=== PATIENT | male | born 1960 | race Asian ===

== ENCOUNTER 2016-11-17 17:27 | Inpatient (IN) | payer OTHER ==
--- NOTE | 2016-11-17 17:56 | ED Physician Documentation ---
History of Present Illness - Stated complaint Stated Complaint: LOWER BACK PX - Chief complaint Chief Complaint: General - History obtained from History obtained from: Patient - History of Present Illness Timing: Other (6 days ago developed R sided back pain with bloating and constipation. Small BM a few days ago after milk of magnesia. Saw clinic today and noted ARF (baseline creatinine is about 1.8-2). No assoc urinary complaints or decrease or dyspnea. He has a H/O NIDDM, PCKD, renal colic.) - Additonal information Additional information: Urologist is Dr Luke ho and Nephro is Dr Hoover Review of Systems Ten Systems: 10 systems reviewed and negative Constitutional: denies: Fever, Chills, Myalgias Cardiac: denies: Chest pain / pressure, Palpitations Respiratory: denies: Dyspnea, Cough GI: denies: Nausea, Vomiting, Diarrhea PD PAST MEDICAL HISTORY - Past Medical History Past Medical History: Yes Cardiovascular: Hypertension Endocrine/Autoimmune: Type 2 diabetes : Renal insuffiency (stage 3, baseline cr 2), Other - Allergies Allergies/Adverse Reactions: Allergies Allergy/AdvReac Type Severity Reaction Status Date / Time No Known Drug Allergies Allergy Verified 11/17/16 17:33 - Social History Does the pt smoke?: No Smoking Status: Never smoker - Immunizations Immunizations are current?: Yes PD ED PE NORMAL - Vitals Vital signs reviewed: Yes - General General: Alert and oriented X 3, No acute distress, Well developed/nourished - HEENT HEENT: PERRL, EOMI - Neck Neck: Supple, no meningeal sign, No bony TTP - Cardiac Cardiac: RRR, No murmur - Respiratory Respiratory: No respiratory distress, Clear bilaterally - Abdomen Abdomen: Soft, Non tender - Back Back: No CVA TTP, No spinal TTP - Extremities Extremities: No edema, No calf tenderness / cord - Neuro Neuro: Alert and oriented X 3, Normal speech - Psych Psych: Normal mood, Normal affect Results - Vitals Vitals: Vital Signs - 24 hr 11/17/16 11/17/16 11/17/16 17:30 20:00 22:58 Temperature 36.2 C L Heart Rate 86 78 81 Respiratory 14 18 18 Rate Blood Pressure 156/83 H 145/82 H 165/81 H O2 Saturation 100 98 97 Oxygen O2 Source Room air - Labs Labs: Laboratory Tests 11/17/16 11/17/16 11/17/16 18:05 18:05 18:49 WBC 11.1 H RBC 3.59 L Hgb 10.9 L Hct 33.2 L MCV 92.3 MCH 30.2 MCHC 32.7 RDW 13.5 Plt Count 129 L MPV 9.4 Neut # 8.9 H Lymph # 1.1 L [place] # 0.9 Eos # 0.1 Baso # 0.1 Absolute Nucleated RBC 0.00 Nucleated RBCs 0.0 Sodium 136 Potassium 5.6 H Chloride 105 Carbon Dioxide 21 Anion Gap 10.0 BUN 86 H* Creatinine 6.7 H Estimated GFR (MDRD) 9 L Glucose 141 H Calcium 8.7 Magnesium 2.8 Total Bilirubin 0.5 AST 27 ALT 45 Alkaline Phosphatase 89 Total Protein 7.9 Albumin 3.6 Globulin 4.3 H Albumin/Globulin Ratio 0.8 L Lipase 138 H Urine Color YELLOW Urine Clarity CLEAR Urine pH 6.0 Ur Specific [place] 1.015 Urine Protein 100 H Urine Glucose (UA) NEGATIVE Urine Ketones NEGATIVE Urine Occult Blood SMALL H Urine Nitrite NEGATIVE Urine Bilirubin NEGATIVE Urine Urobilinogen 0.2 (NORMAL) Ur Leukocyte Esterase NEGATIVE Urine RBC 0-5 Urine WBC 0-3 Ur Squamous Epith Cells RARE Squamous Urine Bacteria Rare Ur Microscopic Review INDICATED Urine Culture Comments NOT INDICATED 11/17/16 21:41 WBC RBC Hgb Hct MCV MCH MCHC RDW Plt Count MPV Neut # Lymph # [place] # Eos # Baso # Absolute Nucleated RBC Nucleated RBCs Sodium 138 Potassium 5.3 H Chloride 108 Carbon Dioxide 20 L Anion Gap 10.0 BUN 89 H* Creatinine 6.4 H Estimated GFR (MDRD) 9 L Glucose 92 Calcium 8.4 L Magnesium Total Bilirubin AST ALT Alkaline Phosphatase Total Protein Albumin Globulin Albumin/Globulin Ratio Lipase Urine Color Urine Clarity Urine pH Ur Specific [place] Urine Protein Urine Glucose (UA) Urine Ketones Urine Occult Blood Urine Nitrite Urine Bilirubin Urine Urobilinogen Ur Leukocyte Esterase Urine RBC Urine WBC Ur Squamous Epith Cells Urine Bacteria Ur Microscopic Review Urine Culture Comments - Rads (name of study) CT KUB Radiology: EMP read contemporaneously (Nephrolithiasis with mild right hydronephrosis and right UPJ stone measuring 7 x 5 x 4 mm. Also renal cyst with a concerning cyst the left, that is being worked up by his urologist.) PD MEDICAL DECISION MAKING - ED course ED course: 55-year-old gentleman with chronic renal insufficiency presents with acute renal failure likely do to a combination of nonobstructing right nephrolithiasis and dehydration. He was administered IV fluids here. I spoke with Dr. Mackenzie, internal combustion engineer for his urologist who felt that he did not need urgent intervention on the stone- but Dr. Ho can be consulted tomorrow.. Call to the hospitalist at [facility] for transfer given that he may need specialty input including but not limited to urology and nephrology at [address] [facility] did not have a bed, they relayed this to us at about 915 p.m. I discussed the case with Dr. Franco here he said that we could repeat a BMP and if his renal function is improving after the fluids that he has already gotten here she would be willing to admit, otherwise would need to transfer. He is 100% service-connected[facility] Departure - Departure Disposition: 66 [facility] DC/Xfer Clinical Impression: Renal colic on right side, Acute on chronic renal failure Condition: Stable
[2016-11-17 18:13] LABS: BASOPHILS # (AUTO) 0.1 10^3/uL (0.0-0.1); BASOPHILS % (AUTO) 0.5 %; EOSINOPHILS # (AUTO) 0.1 10^3/uL (0.0-0.7); EOSINOPHILS % (AUTO) 1.2 %; HCT - HEMATOCRIT 33.2 % (42.0-52.0); HGB - HEMOGLOBIN 10.9 g/dL (14.0-18.0); LYMPHOCYTES # (AUTO) 1.1 10^3/uL (1.5-3.5); LYMPHOCYTES % (AUTO) 10.3 %; MEAN CORPUSCULAR HEMOGLOBIN 30.2 pg (27.0-31.0); MEAN CORPUSCULAR HGB CONC 32.7 g/dL (32.0-36.0); MEAN CORPUSCULAR VOLUME 92.3 fL (80.0-94.0); MEAN PLATELET VOLUME 9.4 fL (7.4-11.4); MONOCYTES # (AUTO) 0.9 10^3/uL (0.0-1.0); NEUTROPHILS # (AUTO) 8.9 10^3/uL (1.5-6.6); RED BLOOD COUNT 3.59 10^6/uL (4.70-6.10); RED CELL DISTRIBUTION WIDTH 13.5 % (12.0-15.0); UNCORRECTED WHITE BLOOD COUNT 11.1 x10^3/uL; WHITE BLOOD COUNT 11.1 x10^3/uL (4.8-10.8)
[2016-11-17 18:44] LABS: ALBUMIN/GLOBULIN RATIO 0.8 (1.0-2.2); BILIRUBIN,TOTAL 0.5 mg/dL (0.2-1.0); CALCIUM 8.7 mg/dL (8.5-10.3); CREATININE 6.7 mg/dL (0.6-1.2); MAGNESIUM 2.8 mg/dL (1.7-2.8); POTASSIUM 5.6 mmol/L (3.5-5.0); TOTAL PROTEIN 7.9 g/dL (6.7-8.2)
[2016-11-17] MEDS ORDERED: SODIUM CHLORIDE 0.9% 1,000 ML IV ONE ×2 (18:59→21:03)
[2016-11-17 19:06] LABS: BILIRUBIN,URINE NEGATIVE (NEGATIVE)
[2016-11-17 19:09] LABS: UA w/ MICROSCOPIC CHARGE YES
[2016-11-17 19:17] LABS: UR CULTURE IF IND NOT INDICATED; WBC,URINE 0-3 /HPF (0-3)
--- NOTE | 2016-11-17 19:39 | CT Preliminary Report ---
Exam: CT Abdomen/Pelvis W/O IMPRESSION: 1. Nephrolithiasis with mild right hydronephrosis and a right ureteropelvic junction stone measuring 7 x 4 x 5 mm. 2. Multiple renal cysts with a more complex hyperdense lesion at the lower pole of the left kidney me asuring 19 mm. Differential diagnosis includes a hyperdense/proteinaceous cyst versus a solid lesion. Follow-up outpatient renal ultrasound suggested for further characterization. [facility] SITE ID: [id number]
--- NOTE | 2016-11-17 19:42 | CT Report ---
EXAM: CT ABDOMEN AND PELVIS EXAM DATE: 11/17/2016 06:43 PM. CLINICAL HISTORY: Right abdominal and flank pain. Acute renal failure. COMPARISONS: Abdomen and pelvis CT 02/09/2006. TECHNIQUE: Routine helical CT imaging was performed through the abdomen and pelvis. IV contrast: None . Enteric contrast: No. Reconstructions: Coronal and sagittal. In accordance with CT protocol optimization, one or more of the following dose reduction techniques w ere utilized for this exam: automated exposure control, adjustment of mA and/or KV based on patient s ize, or use of iterative reconstructive technique. FINDINGS: Lung Bases: Trace linear atelectasis left lower lobe. Liver: Normal. No masses. Gallbladder/Bile Ducts: Contracted gallbladder without adjacent inflammation. Spleen: Normal. Pancreas: Normal. Adrenal Glands: Normal. Kidneys: Left kidney has multiple cysts, largest is an exophytic cyst at the lower pole measuring 8.2 cm. Additionally there is a high-density lesion at the lower pole measuring 19 mm which is indetermi frederic (3, 68). There are multiple cysts within the right kidney as well although with a 3 mm nonobstructing stone an d mild right hydronephrosis. At the level of the ureteropelvic junction there is a 7 x 4 x 5 mm obstr ucting stone. Ureter is decompressed distal to this. Peritoneal Cavity/Bowel: The stomach is unremarkable. There are no dilated loops of large or small in testine. There is mild underlying colonic diverticulosis without focal inflammation. Pelvic Organs: Bladder is unremarkable. Vasculature: Atherosclerosis without abdominal aortic aneurysm. Bones: Minimal degenerative disk disease lumbar spine. Other: None. IMPRESSION: 1. Nephrolithiasis with mild right hydronephrosis and a right ureteropelvic junction stone measuring 7 x 4 x 5 mm. 2. Multiple renal cysts with a more complex hyperdense lesion at the lower pole of the left kidney me asuring 19 mm. Differential diagnosis includes a hyperdense/proteinaceous cyst versus a solid lesion. Follow-up outpatient renal ultrasound suggested for further characterization. [facility] Referring Provider Line: [phone] SITE ID: [id number]
[2016-11-17 21:59] LABS: CALCIUM 8.4 mg/dL (8.5-10.3); CREATININE 6.4 mg/dL (0.6-1.2); POTASSIUM 5.3 mmol/L (3.5-5.0)
[2016-11-17] MEDS ORDERED: ONDANSETRON ODT 4 MG TABLET TL PRN (23:24)
[2016-11-17] MEDS ORDERED: SODIUM CHLORIDE FLUSH 0.9% 10 ML SYRINGE IVP PRN (23:24)
[2016-11-17] MEDS ORDERED: HYDROcod/ACETAM 5/325 MG TABLET PO PRN (23:24)
[2016-11-17] MEDS ORDERED: ACETAMINOPHEN 325 MG TABLET PO PRN (23:24)
[2016-11-17] MEDS ORDERED: PROCHLORPERAZINE 10 MG/2 ML VIAL IVP PRN (23:24)
[2016-11-18] MEDS: SODIUM CHLORIDE 0.9% 1,000 ML IV SCH ×3 (00:01→14:43)
[2016-11-18] MEDS ORDERED: SODIUM CHLORIDE FLUSH 0.9% 10 ML SYRINGE IVP SCH (06:00)
[2016-11-18 06:24] LABS: CREATININE 6.1 mg/dL (0.6-1.2); POTASSIUM 5.8 mmol/L (3.5-5.0)
[2016-11-18] MEDS ORDERED: DEXTROSE 10% IV ONE (07:00)
[2016-11-18] MEDS ORDERED: INSULIN REGULAR HUMAN IV ONE (07:00)
[2016-11-18 07:13] LABS: HEMOGLOBIN A1C 0.35 g/dL
--- NOTE | 2016-11-18 07:49 | HISTORY & PHYSICAL EXAMINATION ---
DATE OF ADMISSION: 11/17/2016 PRIMARY CARE PROVIDER: Dee Feliz MD, [facility]. NEPHROLOGY: [facility]. ADMITTING PROVIDER: Jeannette Franco MD CHIEF COMPLAINT: Back pain with abdominal bloating. HISTORY OF PRESENT ILLNESS: Patient is a 55-year-old [place] male who has cystic kidney disease. It is unclear if it is true polycystic kidney disease, but he has cystic kidney disease and severe nephr olithiasis, which is combined to give him chronic kidney disease. He states that his usual creatinine is between 1.9 and 2.1. He is followed by Family Practice at [facility], who has refe rred him to [facility] in [place]. He has also sought a second opinion with the [facility], and has also been seen by Nephrology and Urology at the [facility] in [place]. When he was last seen in July, his labs were "stable" by both groups of doctors. Between then and now, he states he has been compliant with his medications, and he has had no episodes of renal colic. A week ago he developed increasing right flank and low back pain. He says he has chronic right flank pain, and it has been so for years. It happens maybe once a week, lasts all night long, and when he takes his Salonpas or Tylenol, it is gone by the next morning. This time his pain was associated with mild lower back pain and increasing abdominal bloating and dis tention. He did not have a bowel movement on , Wednesday, or Wednesday, so he took milk of magnes ia. He was not eating very much, and in retrospect realized he probably also was not drinking very mu ch on top of it. He was afraid to eat or drink because he felt that if he had constipation, he would develop nausea and vomiting, if he had constipation and ate too much. He had no abdominal pain, fever , chills. No urgency, frequency, dysuria. He did not have any of the pain he usually associates with renal colic. He saw his clinic doctor today, and it was noted that his "lab values were abnormal," an d he was sent to the emergency room. He says he does not know what the numbers were, and he does not know what exactly was abnormal. He was seen in the emergency room by Dr. Toro. He is a pleasant, short-statured [place] male who i s mildly hypertensive, afebrile, oxygenating well on room air. In no acute distress. However, his pot assium is 5.6, BUN is 86, creatinine 6.7. Dr. Toro contacted Urology, and Dr. Mackenzie was on-call. His usual urologist is Dr. Valderrama. Dr. Mackenzie did not feel that the patient needed any urgent intervention, but felt that the patient should be see n tomorrow. The [facility] was called for attempt to transfer, but there were no beds. I was con tacted to see if we could accept the patient on our service. He had already received a liter of jimena l saline and was on maintenance 150 mL/hour of normal saline. I [facility] Dr[facility], and his BUN went from 86 to 89. Creatinine went from 6.7 to 6.4. Potassium went down to 5.3. As such right now, as a temporary measure, I do feel the patient can be admitted to our service in [facility] of lack of Urology and Nephrology here. The patient is amenable to be admitted here. PAST MEDICAL HISTORY 1. Cystic kidney disease diagnosed around 1991. At that time he was at [facility], and he was racheal d by his [place] doctor that his "creatinine was creeping up." Nothing was done about that until 1996, w hen he was hospitalized for his first kidney stone. Between then and now, he has been diagnosed as begum ving a large kidney, says that they are watching to make sure it is not a tumor. He has had CTs and M RIs, and he is being followed on a yearly basis. Usually creatinine is 1.9 to 2.1. 2. Nephrolithiasis. Uric acid stones. First severe episode was in 1996. Between 1996 and 2005, he had several episodes a month. He regarded them as "mild." In 2005, he had a severe episode with both kidneys being obstructed, and he ended up with sepsis. In addition to the flank pain, he had severe nausea and vomiting and was admitted to the [facility] in [place]. From there he was transferred to the hospital in [place]. In [place], he had both kidneys stented, and eventually both stones passed without lithotripsy. In 2007, he was in [facility] in [place] and hospitalized there. At that time he was not having pain, b ut his creatinine was severely elevated, so a CT was done and showed multiple, multiple stones. This time he had surgery through his "back." Since that time, he has been on potassium citrate and allopurinol. At this time, he sees Dr. Valderrama for Urology and Dr. Hoover for Nephrology at [facility]. 3. Type 2 diabetes mellitus since 2010. No macular degeneration, no neuropathy. 4. Hypertension. 5. Hyperlipidemia. 6. Obstructive sleep apnea. ALLERGIES: NO KNOWN DRUG ALLERGIES. MEDICATIONS List is unknown. So far, nursing has not put that into the computer. The patient says that he takes: 1. Januvia. 2. Glipizide. 3. Three hypertensive medications. 4. Allopurinol. 5. Aspirin. 6. K Citrate. 7. Lipitor. I will verify the names and drug doses in the morning when the pharmacy is open. SOCIAL HISTORY: He never smoked, never drank. He was born and raised in the [facility]. Joined [employer] at the age of 21, was there for 30 years and retired at age 51. 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 His back hurt so much, he ended up quitting. He is 100 % service connected because of disability from back pain. He lives in his own home in [place] with his . She is his first . FAMILY HISTORY: Dad at age 83 of cirrhosis but also suffered from chronic kidney disease and was on dialysis. Mom at age 81 of [place] 30 days-40 days after her . He has 3 sisters who have hypertension. Three children, one of whom has hypertension. There is a possibility o f prostatitis in his son. REVIEW OF SYSTEMS GENERAL: On general questioning, he regards himself as a healthy mayte, other than he knows he should d iet and lose weight. He fishes, mows the lawn, stays active. HEENT: He denies glaucoma, cataracts, macular degeneration. He denies problems with his teeth. No fac ial dysesthesia. No problems with swallowing. PULMONARY: He denies coughing, wheezing, chest congestion. CARDIAC: He denies valvular heart disease, history of heart attacks. No orthopnea, no edema. GENITOURINARY: Positive as above. JOINTS: He aches the older he has gotten. Being a cook in the [employer] for that many years has resulted i n significant foot pain and knee pain when he stands for too long; but more than anything, his low ba ck hurts on a regular basis. Again, he has right flank pain about once a week. All of this is unchang ed for several years now. SKIN: No new lesions. No rashes. No new moles. PSYCHIATRIC: He denies anxiety, depression, suicide, hallucinations. CENTRAL NERVOUS SYSTEM: He denies memory loss, syncope, or seizures. No history of focal dysesthesias . He denies neuropathy. LABORATORIES CHEMISTRY: Sodium is 136, potassium 5.6, carbon dioxide 21, BUN 86, creatinine 6.7, glucose 141, lipa se 138. Repeat after hydration: Sodium is 138, potassium 5.3, carbon dioxide 20, BUN 89, creatinine 6.4. HEMATOLOGY: White cell count is 11.1, hemoglobin 10.9, hematocrit 33.2, platelets 129. URINALYSIS: Proteinuria and occult blood. No red cells or white cells that are in large amounts. Rare bacteria. Culture is not going to be done. ASSESSMENT/PLAN 1. Acute kidney insufficiency superimposed on chronic kidney disease. Fairly severe abrupt rise in cr eatinine according to his history and his recollection of his numbers. Mechanism of injury, I think, is just simple dehydration. We will do a noncontrast CT in the morning. He does recall having a sever e rising creatinine in the past with almost no pain and found to have multiple obstructing stones. As I was getting ready to order the CT, I noted that Dr. Toro had already done that, and he has multi ple cysts in the left kidney, the largest is an exophytic cyst. A high-density lesion in the lower po le. Multiple cysts within the right kidney. Nephrolithiasis with mild right hydronephrosis and right ureteropelvic stone measuring 7 x 4 x 5 mm. As such, I will not order the CT. We will continue hydrat ing overnight. See what his creatinine does tomorrow morning. Options at that point are to transfer h im to [facility] if he has not had significant improvement. Recall them for a bed. If he has had signific ant improvement, he can stay here until his creatinine is baseline, and then he can be discharged. 2. Hypertension. Mildly uncontrolled. We will find out what his medications are tomorrow morning. 3. Abnormal kidney CT. The patient already is being followed for possible neoplasm. He will continue to be followed by both clinics. 4. Type 2 diabetes mellitus, controlled by history. No complications. Not on long-term insulin. Check glucose and give sliding scale insulin as indicated. 5. FULL CODE STATUS. 6. Deep venous thrombosis prophylaxis with CELESTE alexander. ADDENDUM The patient's daughter came in and was able to bring us a dictated and typed up medication list from the [facility]. He is on: 1. Lipitor 20 mg p.o. at bedtime. 2. Aspirin 81 mg p.o. daily. 3. Adalat 30 mg p.o. daily. 4. Cozaar 100 mg p.o. daily. 5. Metoprolol 50 mg daily. 6. Allopurinol 100 mg p.o. daily. 7. Potassium citrate 1080 mg once a day. 8. Glipizide XL 5 mg daily. 9. Januvia 25 mg daily. JOB #: [id number] EXT JOB #:[id number]
[2016-11-18] MEDS: INSULIN ASPART 300 UNIT/3 ML PEN SUBQ SCH ×2 (08:39→11:34)
[2016-11-18] MEDS ORDERED: METOPROLOL SUCCINATE 50 MG TABLET PO SCH (09:00)
[2016-11-18] MEDS ORDERED: POLYETHYLENE GLYCOL 3350 17 GM PACKET PO SCH (09:00)
[2016-11-18] MEDS ORDERED: NIFEdipine ER 30 MG TABLET PO SCH (09:00)
[2016-11-18 09:13] LABS: BASOPHILS % (AUTO) 0.4 %; EOSINOPHILS # (AUTO) 0.1 10^3/uL (0.0-0.7); EOSINOPHILS % (AUTO) 2.3 %; HCT - HEMATOCRIT 30.1 % (42.0-52.0); HGB - HEMOGLOBIN 10.3 g/dL (14.0-18.0); LYMPHOCYTES # (AUTO) 1.1 10^3/uL (1.5-3.5); LYMPHOCYTES % (AUTO) 17.3 %; MEAN CORPUSCULAR HEMOGLOBIN 31.5 pg (27.0-31.0); MEAN CORPUSCULAR HGB CONC 34.2 g/dL (32.0-36.0); MEAN CORPUSCULAR VOLUME 92.2 fL (80.0-94.0); MEAN PLATELET VOLUME 8.6 fL (7.4-11.4); MONOCYTES # (AUTO) 0.6 10^3/uL (0.0-1.0); MONOCYTES % (AUTO) 9.3 %; NEUTROPHILS # (AUTO) 4.7 10^3/uL (1.5-6.6); NEUTROPHILS % (AUTO) 70.7 %; RED BLOOD COUNT 3.27 10^6/uL (4.70-6.10); RED CELL DISTRIBUTION WIDTH 13.5 % (12.0-15.0); UNCORRECTED WHITE BLOOD COUNT 6.6 x10^3/uL; WHITE BLOOD COUNT 6.6 x10^3/uL (4.8-10.8)
[2016-11-18 09:50] LABS: ALBUMIN/GLOBULIN RATIO 0.9 (1.0-2.2); BILIRUBIN,TOTAL 0.5 mg/dL (0.2-1.0); CALCIUM 8.1 mg/dL (8.5-10.3); CREATININE 6.1 mg/dL (0.6-1.2); POTASSIUM 5.3 mmol/L (3.5-5.0); TOTAL PROTEIN 7.1 g/dL (6.7-8.2)
[2016-11-18] MEDS ORDERED: SODIUM POLYSTYRENE SULFONATE 15 GM/60 ML BOTTLE PO ONE (10:45)
[2016-11-18 12:16] VITALS: BP 134/83
--- NOTE | 2016-11-18 13:15 | Discharge Plan ---
Discharge Plan Disposition: 02 Transfer Acute Care Hosp Condition: Serious Diet: Diabetic Activity Restrictions: No Restrictions Shower Restrictions: No Driving Restrictions: No Weight Bearing: Full Weight Instruction Topics: Simple Renal Cysts Additional Instructions or Follow Up instructions: patient to be transferred to [facility] for urology and nephrology consult. services not available at this hospital NPO till seen by Attending. ACLS transfer IVF to continue enroute at 150ml/hr NS Telemetry monitoring No Smoking: If you smoke, Please STOP! Call for help.
--- NOTE | 2016-11-18 15:29 | Ultrasound Report ---
RENAL ULTRASOUND: 11/18/2016 CLINICAL INDICATION: Hydronephrosis, possible solid mass on CT. COMPARISON: CT of 11/17/2016. TECHNIQUE: Real-time sonographic vascular imaging was performed by the director of neurology through the kidney s utilizing both color-flow and Doppler spectral analysis. Multiple artists' booking representative static images wer e saved for review. FINDINGS: The right kidney measures 16.6 x 7.6 x 6.6 cm. Moderate hydronephrosis is present. Multipl e cysts are present. There is a solid appearing nodule measuring 1.2 x 1.0 x 0.7 cm arising from the lateral cortex of the right kidney. The left kidney measures 11.2 x 5.8 x 6.7 cm. No hydronephrosis is present. Multiple cysts are presen t. Additionally, there is a 3.6 x 2.1 x 2.0 cm solid appearing lesion arising from the lateral cortex of the left kidney, with vascular flow identified. Prevoid, the bladder measures 5.4 x 4.1 x 3.2 cm, yielding a prevoid volume of 37 mL. The left ureter al jet was visualized. The right ureteral jet is not seen. IMPRESSION: HYPERDENSE LESION ARISING FROM THE LOWER POLE OF THE LEFT KIDNEY APPEARS TO CORRELATE WI TH A SOLID LESION MEASURING 3.6 X 2.1 X 2.0 CM, WITH VASCULAR FLOW IDENTIFIED. POSSIBLE SECOND SMALLE R SOLID NODULE ARISING FROM THE LATERAL CORTEX OF THE RIGHT KIDNEY, MEASURING 1.2 X 1.0 X 0.7 CM. RIG HT HYDRONEPHROSIS AND NONVISUALIZATION OF THE RIGHT URETERAL JET. JOB #: [id number] EXT JOB #:[id number]
--- NOTE | 2016-11-18 17:31 | DISCHARGE SUMMARY ---
DATE OF ADMISSION: 11/17/2016 DATE OF DISCHARGE: 11/18/2016 DISCHARGING PHYSICIAN: YVES Emerson. PRIMARY CARE PROVIDER: GLORIA and Dr. Feliz. ADMITTING DIAGNOSES: Acute kidney insufficiency superimposed on chronic kidney disease stage III. DISCHARGE DIAGNOSES: 1. Acute kidney injury with chronic kidney disease stage III with UPJ obstruction. 2. Acute kidney failure secondary to nephrolithiasis with mild right hydronephrosis and right UPJ obstruction with stone. 3. 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 4. Noninsulin dependent diabetes mellitus with chronic kidney disease stage III and peripheral neuropathy. 5. Hypertensive heart disease with diastolic congestive heart failure. 6. Mixed hyperlipidemia. 7. Severe obstructive sleep apnea without use of CPAP and noncompliance. 8. Obesity with body mass index greater than 35, with extra caloric intake. PROCEDURES: 1. Renal ultrasound pending. 2. Abdomen and pelvis CT noncontrast, impression shows nephrolithiasis with mild right hydronephrosis and UPJ obstruction and large renal cyst, right kidney of 19 mm. CONSULTATIONS: 1. Urology, Dr. Valderrama; Recommendation to have the patient transferred to have care for Urology and Nephrology. HOSPITAL COURSE: The patient is a 55-year-old [place] gentleman who has a longstanding history of polycystic kidney disease and history of severe nephrolithiasis. He has history of chronic kidney disease stage III. The patient has had a followup by Nephrology and Urology in the past for these chronic conditions. The patient did present to the ER with severe lower back pain and increasing abdominal bloating and discomfort. The patient states that he had been constipated, had not had a bowel movement in several days. He states he had not been eating much and was not drinking much fluid on top of that. He was afraid to eat or drink because he felt that he would start having nausea, vomiting. He has had similar symptoms in the past. He did have pain that was similar to his renal colic, felt he should come into the ER for evaluation. He had originally gone to the clinic which then told him to be reevaluated at the ER because his lab values had come back abnormal. After presentation to the ER, he was found to have a creatinine 6.7 and a potassium of 5.8. The patient was started on IV fluids and Urology and Nephrology were consulted by Dr. Toro in the ER. The patient was admitted, placed on maintenance IV fluids, normal saline at 150 mL an hour. Labs were repeated to see if there is any improvement in his kidney function. His kidney function did decrease with a BUN that went down to 86 from 89 and potassium went down to 5.3 from 5.8, creatinine decreased from 6.7 to 6.4. At that time, decision was made to contact [facility], since the patient's neurologist and field crew chief both practice there. It was found that [facility] did not have any beds, subsequently the patient was admitted for further evaluation and with pending transfer to [facility] once a bed was available. On the day of pending discharge [facility] was contacted again and again had no beds. Decision was made at that time to contact Dr. Valderrama, who is the patient's urologist. Dr. Valderrama recommended transfer to another facility. At that time, [facility] was called and Dr. Armstrong agreed to take the patient with Urology and nephrology on consult. Prior to being transferred the patient did undergo an ultrasound of the kidneys which is pending at this time. At the time of discharge, the patient was stable with vital signs within normal limits. Blood pressure 134/83, pulse 74, respirations 18, and pulse oximetry 97% . He remained afebrile. The patient stated he had no pain at the time of evaluation for transfer. MEDICATIONS AT TIME OF TRANSFER: 1. Allopurinol. 2. Aspirin. 3. Atorvastatin. 4. Glipizide. 5. Losartan. 6. Metoprolol. 7. Nifedipine. 8. Potassium citrate. 9. Januvia. PHYSICAL EXAMINATION: CONSTITUTIONAL: The patient is alert, in no acute distress. EYES: Pupils equal, round and react to light and accommodation. Conjunctivae and sclerae was nonicteric, not injected. ENT: Nares are patent. No nasal discharge. Oropharynx: No masses, exudates or lesions. Mucous membranes are moist. NECK: Supple. No thyromegaly. CARDIOVASCULAR: S1, S2 noted. No gallops, murmurs or rubs. RESPIRATORY: Breath sounds are clear and equal bilaterally to auscultation and percussion, no retractions or nasal flaring. GASTROINTESTINAL: Abdomen was distended, soft, nontender. Bowel sounds hypoactive. GENITOURINARY: Mild CVA tenderness to upper right and left quadrant. No masses palpated. No bladder distention. PSYCHIATRIC: Behavior is appropriate. Normal affect, pleasant mood. SKIN: Warm, dry, intact. Normal turgor. No evidence of rash, lesions, or cellulitis. HEMATOLOGIC: No active bleeding. The patient is hemodynamically stable. LYMPHATICS: No cervical, axillary, supraclavicular lymphadenopathy is noted. NEUROLOGIC: The patient was alert, GCS 15. Cranial nerves 2 through 7 grossly intact. Sensory is intact. MUSCULOSKELETAL/EXTREMITIES: No cyanosis. Pulses are palpable bilaterally to upper and lower extremities. The patient is able to move upper and lower extremities without difficulty. INSTRUCTIONS FOR DISCHARGE AND FOLLOWUP: The patient was to be transferred to [facility] for further evaluation by Dr. Armstrong, internal medicine, and with Urology. The patient verbally understood and agreed to transfer. The patient understood that we had neither of these services at [facility] and this was the main reason for being transferred. The patient also understood that he was to followup with his primary care provider after discharge from hospital. The patient was to be transferred by ACLS on telemetry monitoring and IV fluids, normal saline at 150 mL an hour. The patient's urologist, Dr. Valderrama, was consulted and notified of the patient's transfer. At time of transfer, the patient's vital signs were within normal limits. He was exhibiting no symptoms or signs of pain and he was safely transfer/discharged out of the hospital via ACLS. Instructions were given to the patient for further followup and lifestyle changes related to polycystic kidney disease. Time spent on education, planning and assessment was 50 minutes. CODE STATUS: THE PATIENT REMAINED FULL CODE STATUS. JOB #: [id number] EXT JOB #:[id number] [facility]ITALP[facility]
== END 2016-11-18 15:08 | disposition short-term general hospital (02) | DRG 683 ==
LOC: ED 17:27 → MS 23:24
PROVIDERS: ADMIT Specialist; ATTEND Nurse Practitioner
DX: N17.9 Acute kidney failure, unspecified (principal); Q61.3 Polycystic kidney, unspecified; I50.30 Unspecified diastolic (congestive) heart failure; N13.2 Hydronephrosis with renal and ureteral calculous obstruction; N28.89 Other specified disorders of kidney and ureter; E11.22 Type 2 diabetes mellitus with diabetic chronic kidney disease; N18.3 Chronic kidney disease, stage 3 (moderate); E11.42 Type 2 diabetes mellitus with diabetic polyneuropathy; I11.0 Hypertensive heart disease with heart failure; E78.2 Mixed hyperlipidemia; G47.33 Obstructive sleep apnea (adult) (pediatric); Z91.19 Patient's noncompliance with other medical treatment and regimen; E66.9 Obesity, unspecified; Z68.35 Body mass index [BMI] 35.0-35.9, adult; E86.0 Dehydration; Z79.84 Long term (current) use of oral hypoglycemic drugs; Z79.82 Long term (current) use of aspirin
CPT/HCPCS: 36415; 74176; 76770; 80048; 80053; 81001; 81003; 83036; 83690; 83735; 84550; 85025; 87086; 96360; 96361; 99284; 99285

== ENCOUNTER 2017-12-09 21:58 | Outpatient (CLI) | payer OTHER ==
--- NOTE | 2017-12-09 23:49 | Ultrasound Preliminary Report ---
Exam: US RETROPERITONEAL Impression: 1. Hyperechoic kidneys consistent with medical renal disease. 2. No hydronephrosis. 3. Numerous bilateral renal cysts. [facility] The call report notification system was initiated by Dr. Imtiaz Staples at 23:40 hrs on 12/09/17. The above findings were discussed with Dr CLARK Hoover, by Dr. Imtiaz Staples at 23: 47 hrs on 12/09/17. SITE ID: [id number]
--- NOTE | 2017-12-10 00:13 | Ultrasound Report ---
EXAM: RENAL ULTRASOUND EXAM DATE: 12/09/2017 11:16 PM. CLINICAL HISTORY: Acute renal failure, concern for obstruction. COMPARISON: 11/17/2016 CT, 11/18/2016 ultrasound. TECHNIQUE: Real-time scanning was performed with static images obtained. FINDINGS: The right kidney measures 18.2 x 8.5 x 11.8 cm and demonstrates a hyperechoic parenchymal echotexture . Numerous cysts seen scattered throughout the kidney measuring up to 5.5 cm in diameter. No solid ma ss, stone or hydronephrosis. The left kidney measures 19.1 x 8.5 x 10.3 cm and contains numerous cysts, largest measuring 8.2 cm i n diameter. No obvious stone, contour deforming mass or hydronephrosis. Diffusely hyperechoic parench ymal echotexture. Prevoid bladder volume 375 cc, postvoid 10.1 cc. Bilateral ureteral jets seen. IMPRESSION: 1. Hyperechoic kidneys consistent with medical renal disease. 2. No hydronephrosis. 3. Numerous bilateral renal cysts. [facility] The call report notification system was initiated by Dr. Imtiaz Staples at 23:40 hrs on 12/09/17. The above findings were discussed with Dr CLARK Hoover Dr by Dr. Imtiaz Staples at 23: 47 hrs on 12/09/17. Referring Provider Line: [phone] SITE ID: [id number]
== END 2017-12-09 21:59 | disposition home or self-care (01) ==
LOC: DI 21:58
PROVIDERS: ATTEND Student in an Organized Health Care Education/Training Program
DX: N28.1 Cyst of kidney, acquired (principal)
CPT/HCPCS: 76770

== ENCOUNTER 2018-03-21 15:05 | Outpatient (CLI) | payer OTHER | END 2018-03-21 15:06 | disposition home or self-care (01) | LOC: LAB 15:05 | PROVIDERS: ATTEND Internal Medicine | DX: E87.5 Hyperkalemia (principal) | CPT/HCPCS: 36415; 84132 ==

== ENCOUNTER 2018-06-15 08:55 | Outpatient (CLI) | payer OTHER ==
--- NOTE | 2018-06-15 16:43 | MRI Report ---
Reason: PAIN IN RIGHT KNEE Procedure Date: 06/15/2018 Accession Number: [id number] / [id number] Procedure: MRI - Knee RT W/O CPT Code: FULL RESULT: EXAM: RIGHT KNEE MRI WITHOUT CONTRAST EXAM DATE: 06/15/2018 10:09 AM. CLINICAL HISTORY: Pain in right knee. Swelling, tenderness. COMPARISON: None. TECHNIQUE: Multiplanar, multisequence T1-weighted and fluid-sensitive sequences of the knee without contrast. Other: None. FINDINGS: Bones: No fractures or subluxations. No marrow edema. No bone lesions. Articular Cartilage: Unremarkable. Medial Meniscus: There is a partial thickness tear posterior horn medial meniscus adjacent to and possibly involving the posterior meniscal root. No full-thickness tear is seen however. Series 501 images 8 and 9. Lateral Meniscus: The lateral meniscus is intact. Cruciate Ligaments: Some increased T2 signal seen in the ACL. PCL is unremarkable. ACL is intact. Collateral Ligaments: Medial collateral ligament shows some medial bowing secondary to partial subluxation of the medial meniscus out of the joint. LCL is unremarkable. Tendons: The quadriceps, patellar, semimembranosus, and popliteus tendons are unremarkable. Musculature: No edema or fatty atrophy. Other: Trace joint effusion. No popliteal cyst. No loose bodies. The medial and lateral retinacula are intact. Some subcutaneous edema and swelling is seen in the anterior knee as well as in Hoffa's fat pad. IMPRESSION: 1. Partial thickness tear posterior horn medial meniscus which may involve a portion of the posterior horn meniscal root. No evidence for full-thickness tear, however. Medial meniscus is partially subluxed out of the joint, bowing, otherwise intact and normal-appearing MCL medially. 2. Lateral meniscus, LCL, ACL, PCL are unremarkable. There is some edema in the ACL, of uncertain consequence. Edema also seen in Hoffa's fat pad. Trace joint effusion. [facility] MUSCULOSKELETAL RADIOLOGY SECTION
== END 2018-06-15 08:56 | disposition home or self-care (01) ==
LOC: DI 08:55
PROVIDERS: ATTEND Family Medicine
DX: S83.241A Other tear of medial meniscus, current injury, right knee, initial encounter (principal)

== ENCOUNTER 2020-02-22 10:05 | Outpatient (CLI) | payer OTHER ==
--- NOTE | 2020-02-22 12:21 | XRAY Report ---
PROCEDURE: Chest 2 View X-Ray INDICATIONS: SHORTNESS OF BREATH TECHNIQUE: 2 view(s) of the chest. COMPARISON: Prior CT abdomen/pelvis 11/17/2016 FINDINGS: Surgical changes and devices: None. Lungs and pleura: No pleural effusions or pneumothorax. Lungs are clear. Mediastinum: Mediastinal contours are normal. Heart size is normal. Bones and chest wall: No suspicious bony abnormalities. Soft tissues appear unremarkable. IMPRESSION: Normal for age, source of current symptoms is not seen. Reviewed by: Marc Brown MD on 02/22/2020 12:20 PM PDT Approved by: Marc Brown MD on 02/22/2020 12:20 PM PDT Station ID: [id number]
[2020-02-23 13:08] LABS: HEPATITIS B SURFACE ANTIGEN NON-REACTIVE (NON-REACTIVE); HEPATITIS C ANTIBODY NON-REACTIVE (NON-REACTIVE)
== END 2020-02-22 10:06 | disposition home or self-care (01) ==
LOC: LAB 10:05 → DI 10:06
PROVIDERS: ATTEND Student in an Organized Health Care Education/Training Program
DX: R06.02 Shortness of breath (principal); B19.10 Unspecified viral hepatitis B without hepatic coma; B17.10 Acute hepatitis C without hepatic coma; Z20.828 Contact with and (suspected) exposure to other viral communicable diseases
CPT/HCPCS: 36415; 71046; 86317; 86704; 86803; 87340

== ENCOUNTER 2021-01-02 07:00 | Outpatient (CLI) | payer MEDICARE, OTHER | END 2021-01-02 23:59 | disposition home or self-care (01) | LOC: COV 07:00 | PROVIDERS: ATTEND Internal Medicine Nephrology | DX: Z20.822 Contact with and (suspected) exposure to COVID-19 (principal) ==

== ENCOUNTER 2023-01-14 10:48 | Outpatient (CLI) | payer MEDICARE, OTHER ==
--- NOTE | 2023-01-14 13:41 | XRAY Report ---
PROCEDURE: Shoulder 3 View RT INDICATIONS: SHOULDER PAIN TECHNIQUE: 3 views of the shoulder were acquired. COMPARISON: None. FINDINGS: Bones: No fractures or dislocations. Mild to moderate acromioclavicular joint osteophytic changes a re seen. No suspicious bony lesions. Visualized ribs appear intact. Soft tissues: No suspicious soft tissue calcifications. 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 No fracture or dislocation. No gross s oft tissue abnormalities. Reviewed by: Josef Roberts MD on 01/14/2023 1:40 PM PDT Approved by: Josef Roberts MD on 01/14/2023 1:40 PM PDT Station ID: [id number]
== END 2023-01-14 10:49 | disposition home or self-care (01) ==
LOC: DI 10:48
PROVIDERS: ATTEND Internal Medicine
DX: M19.011 Primary osteoarthritis, right shoulder (principal)

== ENCOUNTER 2023-05-03 07:26 | Outpatient (CLI) | payer MEDICARE, OTHER ==
[2023-05-03 07:37] LABS: BASOPHILS % (AUTO) 0.4 %; EOSINOPHILS % (AUTO) 0.7 %; HCT - HEMATOCRIT 32.7 % (42.0-52.0); HGB - HEMOGLOBIN 10.9 g/dL (14.0-18.0); MEAN CORPUSCULAR HEMOGLOBIN 32.4 pg (27.0-31.0); MEAN CORPUSCULAR HGB CONC 33.3 g/dL (32.0-36.0); MEAN CORPUSCULAR VOLUME 97.3 fL (80.0-94.0); MEAN PLATELET VOLUME 10.6 fL (7.4-11.4); MONOCYTES # (AUTO) 0.4 10^3/uL (0.0-1.0); MONOCYTES % (AUTO) 8.3 %; NEUTROPHILS # (AUTO) 3.1 10^3/uL (1.5-6.6); NEUTROPHILS % (AUTO) 66.4 %; PLT - PLATELET COUNT 131 10^3/uL (130-450); RED BLOOD COUNT 3.36 10^6/uL (4.70-6.10); RED CELL DISTRIBUTION WIDTH 14.8 % (12.0-15.0); WHITE BLOOD COUNT 4.6 x10^3/uL (4.8-10.8)
[2023-05-03 07:48] LABS: BILIRUBIN,URINE NEGATIVE (NEGATIVE); GLUCOSE, URINE (UA) NEGATIVE (NEGATIVE); KETONES,URINE (UA) NEGATIVE (NEGATIVE); LEUKOCYTE ESTERASE, URINE NEGATIVE (NEGATIVE); NITRITE,URINE NEGATIVE (NEGATIVE); OCCULT BLOOD,URINE NEGATIVE (NEGATIVE); PROTEIN,URINE NEGATIVE (NEGATIVE); UROBILINOGEN,URINE 0.2 (NORMAL) E.U./dL (NORMAL)
[2023-05-03 07:53] LABS: ALBUMIN 4.5 g/dL (3.2-5.5); BILIRUBIN,TOTAL 0.5 mg/dL (0.2-1.0); CALCIUM 9.8 mg/dL (8.5-10.3); MAGNESIUM 1.4 mg/dL (1.7-2.3); PHOSPHORUS 2.2 mg/dL (2.5-5.0); TOTAL PROTEIN 6.8 g/dL (6.4-8.9)
[2023-05-03 07:56] LABS: PROTEIN/CREATININE RATIO,URINE 0.2 (<=0.2)
[2023-05-03 08:07] LABS: BACTERIA,URINE None Seen /HPF (None Seen); CLARITY,URINE CLEAR (CLEAR); RBC,URINE None Seen /HPF (0-5); SQUAMOUS EPITHELIAL CELL,UR NONE SEEN (<= Few); WBC,URINE 0-3 /HPF (0-3)
== END 2023-05-03 07:27 | disposition home or self-care (01) ==
LOC: LAB 07:26
PROVIDERS: ATTEND Internal Medicine
DX: T86.90 Unspecified complication of unspecified transplanted organ and tissue (principal); Z94.0 Kidney transplant status; Z48.298 Encounter for aftercare following other organ transplant; E83.40 Disorders of magnesium metabolism, unspecified; N39.0 Urinary tract infection, site not specified
CPT/HCPCS: 36415; 80053; 80197; 81001; 82570; 83735; 84100; 84156; 85025; 87086

== ENCOUNTER 2023-05-13 07:20 | Outpatient (CLI) | payer MEDICARE, OTHER ==
[2023-05-13 07:38] LABS: BASOPHILS % (AUTO) 0.6 %; EOSINOPHILS % (AUTO) 1.3 %; HCT - HEMATOCRIT 33.9 % (42.0-52.0); HGB - HEMOGLOBIN 11.1 g/dL (14.0-18.0); LYMPHOCYTES % (AUTO) 20.9 %; MEAN CORPUSCULAR HEMOGLOBIN 32.8 pg (27.0-31.0); MEAN CORPUSCULAR HGB CONC 32.7 g/dL (32.0-36.0); MEAN CORPUSCULAR VOLUME 100.3 fL (80.0-94.0); MEAN PLATELET VOLUME 10.9 fL (7.4-11.4); MONOCYTES % (AUTO) 10.1 %; NEUTROPHILS % (AUTO) 60.9 %; PLT - PLATELET COUNT 120 10^3/uL (130-450); RED BLOOD COUNT 3.38 10^6/uL (4.70-6.10); RED CELL DISTRIBUTION WIDTH 14.6 % (12.0-15.0); WHITE BLOOD COUNT 4.7 x10^3/uL (4.8-10.8)
[2023-05-13 07:39] LABS: BILIRUBIN,URINE NEGATIVE (NEGATIVE); GLUCOSE, URINE (UA) NEGATIVE (NEGATIVE); KETONES,URINE (UA) NEGATIVE (NEGATIVE); LEUKOCYTE ESTERASE, URINE NEGATIVE (NEGATIVE); NITRITE,URINE NEGATIVE (NEGATIVE); OCCULT BLOOD,URINE NEGATIVE (NEGATIVE); PROTEIN,URINE TRACE mg/dL (NEGATIVE); UROBILINOGEN,URINE 0.2 (NORMAL) E.U./dL (NORMAL)
[2023-05-13 07:44] LABS: SLIDE REVIEW? Indicated
[2023-05-13 07:44] LABS: CLARITY,URINE CLEAR (CLEAR)
[2023-05-13 07:48] LABS: BACTERIA,URINE Rare /HPF (None Seen); RBC,URINE 0-5 /HPF (0-5); SQUAMOUS EPITHELIAL CELL,UR NONE SEEN (<= Few)
[2023-05-13 08:04] LABS: CREATININE,URINE 114.3 mg/dL; PROTEIN/CREATININE RATIO,URINE 0.2 (<=0.2)
[2023-05-13 08:07] LABS: ALBUMIN 4.4 g/dL (3.2-5.5); BILIRUBIN,TOTAL 0.4 mg/dL (0.2-1.0); CALCIUM 9.6 mg/dL (8.5-10.3); CREATININE 0.9 mg/dL (0.6-1.3); MAGNESIUM 1.5 mg/dL (1.7-2.3); PHOSPHORUS 2.4 mg/dL (2.5-5.0); POTASSIUM 3.9 mmol/L (3.5-4.5); TOTAL PROTEIN 6.6 g/dL (6.4-8.9)
[2023-05-13 08:39] LABS: ABNORMAL LYMPHS % (MANUAL) 0 %; BAND NEUTROPHILS % (MANUAL) 0 %
[2023-05-13 08:40] LABS: EOSINOPHILS # (MANUAL) 0.1 10^3/uL (0-0.7); LYMPHOCYTES # (MANUAL) 1.2 10^3/uL (1.5-3.5); LYMPHOCYTES % (MANUAL) 25 %; METAMYELOCYTES % (MANUAL) 1 %; MONOCYTES # (MANUAL) 0.3 10^3/uL (0.0-1.0); NEUTROPHILS # (MANUAL) 3.1 10^3/uL (1.5-6.6)
[2023-05-13 08:41] LABS: RBC MORPHOLOGY (MULTIPLE) 1+ TEARDROP CELLS (NORMAL)
[2023-05-13 08:42] LABS: DIFFERENTIAL COMMENT MANUAL DIFFERENTIAL; PLATELET ESTIMATE, MANUAL DECREASED (<130,000) (NORMAL); PLATELET MORPHOLOGY NORMAL APP (NORMAL); WBC MORPHOLOGY (MULTIPLE) NORMAL APPEARANCE (NORMAL)
== END 2023-05-13 07:21 | disposition home or self-care (01) ==
LOC: LAB 07:20
PROVIDERS: ATTEND Internal Medicine
DX: N39.0 Urinary tract infection, site not specified (principal); Z94.0 Kidney transplant status; Z48.298 Encounter for aftercare following other organ transplant; E83.40 Disorders of magnesium metabolism, unspecified; T86.90 Unspecified complication of unspecified transplanted organ and tissue
CPT/HCPCS: 36415; 80053; 80197; 81001; 82570; 83735; 84100; 84156; 85025; 87086

== ENCOUNTER 2023-05-17 07:15 | Outpatient (CLI) | payer MEDICARE, OTHER ==
[2023-05-17 07:34] LABS: BASOPHILS % (AUTO) 0.5 %; EOSINOPHILS % (AUTO) 0.7 %; HCT - HEMATOCRIT 33.5 % (42.0-52.0); LYMPHOCYTES # (AUTO) 0.9 10^3/uL (1.5-3.5); LYMPHOCYTES % (AUTO) 21.8 %; MEAN CORPUSCULAR HEMOGLOBIN 32.9 pg (27.0-31.0); MEAN CORPUSCULAR HGB CONC 32.8 g/dL (32.0-36.0); MEAN CORPUSCULAR VOLUME 100.3 fL (80.0-94.0); MEAN PLATELET VOLUME 10.9 fL (7.4-11.4); MONOCYTES # (AUTO) 0.4 10^3/uL (0.0-1.0); MONOCYTES % (AUTO) 9.6 %; NEUTROPHILS # (AUTO) 2.6 10^3/uL (1.5-6.6); NEUTROPHILS % (AUTO) 60.4 %; PLT - PLATELET COUNT 108 10^3/uL (130-450); RED BLOOD COUNT 3.34 10^6/uL (4.70-6.10); RED CELL DISTRIBUTION WIDTH 14.4 % (12.0-15.0); WHITE BLOOD COUNT 4.3 x10^3/uL (4.8-10.8)
[2023-05-17 07:38] LABS: BILIRUBIN,URINE NEGATIVE (NEGATIVE); GLUCOSE, URINE (UA) NEGATIVE (NEGATIVE); KETONES,URINE (UA) NEGATIVE (NEGATIVE); LEUKOCYTE ESTERASE, URINE NEGATIVE (NEGATIVE); NITRITE,URINE NEGATIVE (NEGATIVE); OCCULT BLOOD,URINE NEGATIVE (NEGATIVE); PROTEIN,URINE NEGATIVE (NEGATIVE); UROBILINOGEN,URINE 0.2 (NORMAL) E.U./dL (NORMAL)
[2023-05-17 07:53] LABS: CREATININE,URINE 99.6 mg/dL; PROTEIN/CREATININE RATIO,URINE 0.2 (<=0.2)
[2023-05-17 08:14] LABS: ALBUMIN 4.5 g/dL (3.2-5.5); ALBUMIN/GLOBULIN RATIO 2.4 (1.0-2.2); BILIRUBIN,TOTAL 0.4 mg/dL (0.2-1.0); CALCIUM 9.9 mg/dL (8.5-10.3); CREATININE 0.9 mg/dL (0.6-1.3); MAGNESIUM 1.5 mg/dL (1.7-2.3); PHOSPHORUS 2.3 mg/dL (2.5-5.0); POTASSIUM 3.8 mmol/L (3.5-4.5); TOTAL PROTEIN 6.4 g/dL (6.4-8.9)
[2023-05-17 08:23] LABS: BACTERIA,URINE None Seen /HPF (None Seen); CLARITY,URINE CLEAR (CLEAR); RBC,URINE None Seen /HPF (0-5); SQUAMOUS EPITHELIAL CELL,UR RARE Squamous (<= Few); WBC,URINE 0-3 /HPF (0-3)
[2023-05-17 08:32] LABS: PLATELET MORPHOLOGY NORMAL APPEARANCE (NORMAL); SLIDE REVIEW? Indicated
[2023-05-17 08:33] LABS: PLATELET ESTIMATE, MANUAL DECREASED (<130,000) (NORMAL); RBC MORPHOLOGY (MULTIPLE) NORMAL APPEARANCE (NORMAL); WBC MORPHOLOGY (MULTIPLE) NORMAL APPEARANCE (NORMAL)
== END 2023-05-17 07:16 | disposition home or self-care (01) ==
LOC: LAB 07:15
PROVIDERS: ATTEND Internal Medicine
DX: E83.40 Disorders of magnesium metabolism, unspecified (principal); Z94.0 Kidney transplant status; Z48.298 Encounter for aftercare following other organ transplant; T86.90 Unspecified complication of unspecified transplanted organ and tissue; N39.0 Urinary tract infection, site not specified
CPT/HCPCS: 36415; 80053; 80197; 81001; 82570; 83735; 84100; 84156; 85025; 87086

== ENCOUNTER 2023-05-23 07:48 | Outpatient (CLI) | payer MEDICARE, OTHER ==
[2023-05-23 08:13] LABS: BASOPHILS % (AUTO) 0.6 %; EOSINOPHILS # (AUTO) 0.1 10^3/uL (0.0-0.7); EOSINOPHILS % (AUTO) 1.7 %; HCT - HEMATOCRIT 34.4 % (42.0-52.0); HGB - HEMOGLOBIN 11.3 g/dL (14.0-18.0); LYMPHOCYTES # (AUTO) 1.1 10^3/uL (1.5-3.5); LYMPHOCYTES % (AUTO) 31.9 %; MEAN CORPUSCULAR HEMOGLOBIN 32.2 pg (27.0-31.0); MEAN CORPUSCULAR HGB CONC 32.8 g/dL (32.0-36.0); MEAN PLATELET VOLUME 10.2 fL (7.4-11.4); MONOCYTES # (AUTO) 0.4 10^3/uL (0.0-1.0); MONOCYTES % (AUTO) 10.4 %; NEUTROPHILS # (AUTO) 1.8 10^3/uL (1.5-6.6); NEUTROPHILS % (AUTO) 52.8 %; PLT - PLATELET COUNT 130 10^3/uL (130-450); RED BLOOD COUNT 3.51 10^6/uL (4.70-6.10); RED CELL DISTRIBUTION WIDTH 13.9 % (12.0-15.0); WHITE BLOOD COUNT 3.5 x10^3/uL (4.8-10.8)
[2023-05-23 08:17] LABS: BILIRUBIN,URINE NEGATIVE (NEGATIVE); GLUCOSE, URINE (UA) NEGATIVE (NEGATIVE); KETONES,URINE (UA) NEGATIVE (NEGATIVE); LEUKOCYTE ESTERASE, URINE NEGATIVE (NEGATIVE); NITRITE,URINE NEGATIVE (NEGATIVE); OCCULT BLOOD,URINE NEGATIVE (NEGATIVE); PH,URINE 6.5 PH (5.0-7.5); PROTEIN,URINE NEGATIVE (NEGATIVE); UROBILINOGEN,URINE 0.2 (NORMAL) E.U./dL (NORMAL)
[2023-05-23 08:25] LABS: BACTERIA,URINE None Seen /HPF (None Seen); CLARITY,URINE CLEAR (CLEAR); RBC,URINE None Seen /HPF (0-5); SQUAMOUS EPITHELIAL CELL,UR NONE SEEN (<= Few); WBC,URINE 0-3 /HPF (0-3)
[2023-05-23 08:28] LABS: CREATININE,URINE 122.8 mg/dL; PROTEIN/CREATININE RATIO,URINE 0.1 (<=0.2)
[2023-05-23 08:29] LABS: ALBUMIN 4.5 g/dL (3.2-5.5); BILIRUBIN,TOTAL 0.6 mg/dL (0.2-1.0); CALCIUM 9.7 mg/dL (8.5-10.3); MAGNESIUM 1.5 mg/dL (1.7-2.3); PHOSPHORUS 2.2 mg/dL (2.5-5.0); POTASSIUM 3.8 mmol/L (3.5-4.5); TOTAL PROTEIN 6.7 g/dL (6.4-8.9)
== END 2023-05-23 07:49 | disposition home or self-care (01) ==
LOC: LAB 07:48
PROVIDERS: ATTEND Internal Medicine
DX: Z94.0 Kidney transplant status (principal); Z48.298 Encounter for aftercare following other organ transplant; E83.40 Disorders of magnesium metabolism, unspecified; T86.90 Unspecified complication of unspecified transplanted organ and tissue; N39.0 Urinary tract infection, site not specified
CPT/HCPCS: 36415; 80053; 80197; 81001; 82570; 83735; 84100; 84156; 85025; 87086

== ENCOUNTER 2023-05-31 07:58 | Outpatient (CLI) | payer MEDICARE, OTHER ==
[2023-05-31 08:40] LABS: BASOPHILS % (AUTO) 0.3 %; EOSINOPHILS # (AUTO) 0.1 10^3/uL (0.0-0.7); EOSINOPHILS % (AUTO) 2.1 %; HGB - HEMOGLOBIN 11.3 g/dL (14.0-18.0); LYMPHOCYTES # (AUTO) 1.1 10^3/uL (1.5-3.5); LYMPHOCYTES % (AUTO) 33.5 %; MEAN CORPUSCULAR HEMOGLOBIN 32.8 pg (27.0-31.0); MEAN CORPUSCULAR HGB CONC 33.2 g/dL (32.0-36.0); MEAN CORPUSCULAR VOLUME 98.6 fL (80.0-94.0); MEAN PLATELET VOLUME 10.4 fL (7.4-11.4); MONOCYTES # (AUTO) 0.3 10^3/uL (0.0-1.0); MONOCYTES % (AUTO) 9.1 %; NEUTROPHILS # (AUTO) 1.7 10^3/uL (1.5-6.6); NEUTROPHILS % (AUTO) 50.4 %; PLT - PLATELET COUNT 109 10^3/uL (130-450); RED BLOOD COUNT 3.45 10^6/uL (4.70-6.10); RED CELL DISTRIBUTION WIDTH 13.9 % (12.0-15.0); WHITE BLOOD COUNT 3.3 x10^3/uL (4.8-10.8)
[2023-05-31 09:02] LABS: ALBUMIN 4.4 g/dL (3.2-5.5); BILIRUBIN,TOTAL 0.5 mg/dL (0.2-1.0); CALCIUM 9.6 mg/dL (8.5-10.3); CREATININE 0.8 mg/dL (0.6-1.3); MAGNESIUM 1.4 mg/dL (1.7-2.3); PHOSPHORUS 1.8 mg/dL (2.5-5.0); POTASSIUM 3.9 mmol/L (3.5-4.5); TOTAL PROTEIN 6.6 g/dL (6.4-8.9)
[2023-05-31 09:25] LABS: CREATININE,URINE 103.4 mg/dL; PROTEIN/CREATININE RATIO,URINE 0.2 (<=0.2)
[2023-05-31 09:49] LABS: BILIRUBIN,URINE NEGATIVE (NEGATIVE); GLUCOSE, URINE (UA) NEGATIVE (NEGATIVE); KETONES,URINE (UA) NEGATIVE (NEGATIVE); LEUKOCYTE ESTERASE, URINE NEGATIVE (NEGATIVE); NITRITE,URINE NEGATIVE (NEGATIVE); OCCULT BLOOD,URINE NEGATIVE (NEGATIVE); PROTEIN,URINE NEGATIVE (NEGATIVE); UROBILINOGEN,URINE 0.2 (NORMAL) E.U./dL (NORMAL)
[2023-05-31 10:03] LABS: BACTERIA,URINE None Seen /HPF (None Seen); CLARITY,URINE CLEAR (CLEAR); RBC,URINE None Seen /HPF (0-5); SQUAMOUS EPITHELIAL CELL,UR NONE SEEN (<= Few); WBC,URINE 0-3 /HPF (0-3)
[2023-06-01 16:08] LABS: TACROLIMUS (FK506) 6.8 ng/mL (2.0-20.0)
[2023-06-02 13:10] LABS: MYCOPHENOLIC ACID 3.2 ug/mL (1.0-3.5)
[2023-06-03 15:08] LABS: CMV QUANTITATION DNA PCR Negative (Negative)
== END 2023-05-31 07:59 | disposition home or self-care (01) ==
LOC: LAB 07:58
PROVIDERS: ATTEND Internal Medicine
DX: T86.90 Unspecified complication of unspecified transplanted organ and tissue (principal); Z94.0 Kidney transplant status; Z48.298 Encounter for aftercare following other organ transplant; N39.0 Urinary tract infection, site not specified; E83.40 Disorders of magnesium metabolism, unspecified; B34.9 Viral infection, unspecified
CPT/HCPCS: 36415; 80053; 80197; 81001; 82570; 83735; 84100; 84156; 85025; 87086; 87497

== ENCOUNTER 2023-06-21 07:34 | Outpatient (CLI) | payer MEDICARE, OTHER ==
[2023-06-21 07:49] LABS: BASOPHILS % (AUTO) 0.5 %; EOSINOPHILS # (AUTO) 0.1 10^3/uL (0.0-0.7); EOSINOPHILS % (AUTO) 1.5 %; HCT - HEMATOCRIT 34.4 % (42.0-52.0); HGB - HEMOGLOBIN 11.5 g/dL (14.0-18.0); LYMPHOCYTES # (AUTO) 1.3 10^3/uL (1.5-3.5); LYMPHOCYTES % (AUTO) 32.2 %; MEAN CORPUSCULAR HEMOGLOBIN 32.1 pg (27.0-31.0); MEAN CORPUSCULAR HGB CONC 33.4 g/dL (32.0-36.0); MEAN CORPUSCULAR VOLUME 96.1 fL (80.0-94.0); MEAN PLATELET VOLUME 10.8 fL (7.4-11.4); MONOCYTES # (AUTO) 0.6 10^3/uL (0.0-1.0); MONOCYTES % (AUTO) 15.4 %; NEUTROPHILS % (AUTO) 47.5 %; PLT - PLATELET COUNT 106 10^3/uL (130-450); RED BLOOD COUNT 3.58 10^6/uL (4.70-6.10); RED CELL DISTRIBUTION WIDTH 13.2 % (12.0-15.0); WHITE BLOOD COUNT 4.1 x10^3/uL (4.8-10.8)
[2023-06-21 08:04] LABS: ALBUMIN 4.4 g/dL (3.2-5.5); ALBUMIN/GLOBULIN RATIO 1.8 (1.0-2.2); BILIRUBIN,TOTAL 0.7 mg/dL (0.2-1.0); CALCIUM 9.7 mg/dL (8.5-10.3); CREATININE 0.8 mg/dL (0.6-1.3); MAGNESIUM 1.3 mg/dL (1.7-2.3); PHOSPHORUS 2.3 mg/dL (2.5-5.0); POTASSIUM 3.7 mmol/L (3.5-4.5); TOTAL PROTEIN 6.8 g/dL (6.4-8.9)
[2023-06-21 08:51] LABS: CREATININE,URINE 149.1 mg/dL; PROTEIN/CREATININE RATIO,URINE 0.2 (<=0.2)
[2023-06-21 09:00] LABS: BILIRUBIN,URINE NEGATIVE (NEGATIVE); GLUCOSE, URINE (UA) NEGATIVE (NEGATIVE); KETONES,URINE (UA) NEGATIVE (NEGATIVE); LEUKOCYTE ESTERASE, URINE NEGATIVE (NEGATIVE); NITRITE,URINE NEGATIVE (NEGATIVE); OCCULT BLOOD,URINE NEGATIVE (NEGATIVE); PROTEIN,URINE TRACE mg/dL (NEGATIVE); UROBILINOGEN,URINE 0.2 (NORMAL) E.U./dL (NORMAL)
[2023-06-21 10:14] LABS: BACTERIA,URINE Rare /HPF (None Seen); CLARITY,URINE CLEAR (CLEAR); RBC,URINE 0-5 /HPF (0-5); SQUAMOUS EPITHELIAL CELL,UR RARE Squamous (<= Few); WBC,URINE 0-3 /HPF (0-3)
== END 2023-06-21 07:35 | disposition home or self-care (01) ==
LOC: LAB 07:34
PROVIDERS: ATTEND Internal Medicine
DX: E83.40 Disorders of magnesium metabolism, unspecified (principal); Z48.298 Encounter for aftercare following other organ transplant; Z94.0 Kidney transplant status; T86.90 Unspecified complication of unspecified transplanted organ and tissue; N39.0 Urinary tract infection, site not specified
CPT/HCPCS: 36415; 80053; 80197; 81001; 82570; 83735; 84100; 84156; 85025; 87086

== ENCOUNTER 2023-07-06 08:14 | Outpatient (CLI) | payer MEDICARE, OTHER ==
[2023-07-06 08:30] LABS: BASOPHILS % (AUTO) 0.4 %; EOSINOPHILS # (AUTO) 0.1 10^3/uL (0.0-0.7); EOSINOPHILS % (AUTO) 1.3 %; HCT - HEMATOCRIT 35.9 % (42.0-52.0); HGB - HEMOGLOBIN 11.9 g/dL (14.0-18.0); LYMPHOCYTES # (AUTO) 1.2 10^3/uL (1.5-3.5); LYMPHOCYTES % (AUTO) 24.8 %; MEAN CORPUSCULAR HEMOGLOBIN 32.2 pg (27.0-31.0); MEAN CORPUSCULAR HGB CONC 33.1 g/dL (32.0-36.0); MEAN PLATELET VOLUME 10.4 fL (7.4-11.4); MONOCYTES # (AUTO) 0.7 10^3/uL (0.0-1.0); MONOCYTES % (AUTO) 14.3 %; NEUTROPHILS # (AUTO) 2.6 10^3/uL (1.5-6.6); NEUTROPHILS % (AUTO) 54.5 %; PLT - PLATELET COUNT 109 10^3/uL (130-450); RED CELL DISTRIBUTION WIDTH 12.8 % (12.0-15.0); WHITE BLOOD COUNT 4.7 x10^3/uL (4.8-10.8)
[2023-07-06 08:32] LABS: BILIRUBIN,URINE NEGATIVE (NEGATIVE); GLUCOSE, URINE (UA) NEGATIVE (NEGATIVE); KETONES,URINE (UA) NEGATIVE (NEGATIVE); LEUKOCYTE ESTERASE, URINE NEGATIVE (NEGATIVE); NITRITE,URINE NEGATIVE (NEGATIVE); OCCULT BLOOD,URINE NEGATIVE (NEGATIVE); PH,URINE 5.5 PH (5.0-7.5); PROTEIN,URINE NEGATIVE (NEGATIVE); UROBILINOGEN,URINE 0.2 (NORMAL) E.U./dL (NORMAL)
[2023-07-06 08:38] LABS: BACTERIA,URINE Rare /HPF (None Seen); CLARITY,URINE CLEAR (CLEAR); PROTEIN/CREATININE RATIO,URINE 0.1 (<=0.2); RBC,URINE None Seen /HPF (0-5); SQUAMOUS EPITHELIAL CELL,UR NONE SEEN (<= Few); WBC,URINE 0-3 /HPF (0-3)
[2023-07-06 08:39] LABS: ALBUMIN 4.4 g/dL (3.2-5.5); ALBUMIN/GLOBULIN RATIO 1.7 (1.0-2.2); BILIRUBIN,TOTAL 0.5 mg/dL (0.2-1.0); CALCIUM 9.8 mg/dL (8.5-10.3); MAGNESIUM 1.4 mg/dL (1.7-2.3); PHOSPHORUS 2.5 mg/dL (2.5-5.0); POTASSIUM 3.8 mmol/L (3.5-4.5)
== END 2023-07-06 08:15 | disposition home or self-care (01) ==
LOC: LAB 08:14
PROVIDERS: ATTEND Internal Medicine
DX: E83.40 Disorders of magnesium metabolism, unspecified (principal); Z94.0 Kidney transplant status; Z48.298 Encounter for aftercare following other organ transplant; T86.90 Unspecified complication of unspecified transplanted organ and tissue; N39.0 Urinary tract infection, site not specified
CPT/HCPCS: 36415; 80053; 80197; 81001; 82570; 83735; 84100; 84156; 85025; 87086

== ENCOUNTER 2023-07-19 07:56 | Outpatient (CLI) | payer MEDICARE, OTHER ==
[2023-07-19 08:19] LABS: BILIRUBIN,URINE NEGATIVE (NEGATIVE); GLUCOSE, URINE (UA) NEGATIVE (NEGATIVE); KETONES,URINE (UA) NEGATIVE (NEGATIVE); LEUKOCYTE ESTERASE, URINE NEGATIVE (NEGATIVE); NITRITE,URINE NEGATIVE (NEGATIVE); OCCULT BLOOD,URINE NEGATIVE (NEGATIVE); PROTEIN,URINE NEGATIVE (NEGATIVE); UROBILINOGEN,URINE 0.2 (NORMAL) E.U./dL (NORMAL)
[2023-07-19 08:23] LABS: BASOPHILS % (AUTO) 0.5 %; EOSINOPHILS # (AUTO) 0.1 10^3/uL (0.0-0.7); EOSINOPHILS % (AUTO) 1.2 %; HCT - HEMATOCRIT 34.5 % (42.0-52.0); HGB - HEMOGLOBIN 11.7 g/dL (14.0-18.0); LYMPHOCYTES # (AUTO) 1.1 10^3/uL (1.5-3.5); LYMPHOCYTES % (AUTO) 25.9 %; MEAN CORPUSCULAR HGB CONC 33.9 g/dL (32.0-36.0); MEAN CORPUSCULAR VOLUME 97.2 fL (80.0-94.0); MEAN PLATELET VOLUME 10.4 fL (7.4-11.4); MONOCYTES # (AUTO) 0.6 10^3/uL (0.0-1.0); MONOCYTES % (AUTO) 15.4 %; NEUTROPHILS # (AUTO) 2.2 10^3/uL (1.5-6.6); NEUTROPHILS % (AUTO) 54.3 %; PLT - PLATELET COUNT 90 10^3/uL (130-450); RED BLOOD COUNT 3.55 10^6/uL (4.70-6.10); RED CELL DISTRIBUTION WIDTH 12.6 % (12.0-15.0); WHITE BLOOD COUNT 4.1 x10^3/uL (4.8-10.8)
[2023-07-19 08:30] LABS: CREATININE,URINE 134.9 mg/dL; PROTEIN/CREATININE RATIO,URINE 0.1 (<=0.2)
[2023-07-19 08:31] LABS: ALBUMIN 4.3 g/dL (3.2-5.5); ALBUMIN/GLOBULIN RATIO 1.9 (1.0-2.2); BILIRUBIN,TOTAL 0.7 mg/dL (0.2-1.0); CALCIUM 9.8 mg/dL (8.5-10.3); MAGNESIUM 1.4 mg/dL (1.7-2.3); PHOSPHORUS 2.7 mg/dL (2.5-5.0); POTASSIUM 3.8 mmol/L (3.5-4.5); TOTAL PROTEIN 6.6 g/dL (6.4-8.9)
[2023-07-19 08:35] LABS: BACTERIA,URINE None Seen /HPF (None Seen); CLARITY,URINE CLEAR (CLEAR); RBC,URINE None Seen /HPF (0-5); SQUAMOUS EPITHELIAL CELL,UR NONE SEEN (<= Few); WBC,URINE 0-3 /HPF (0-3)
== END 2023-07-19 07:57 | disposition home or self-care (01) ==
LOC: LAB 07:56
PROVIDERS: ATTEND Internal Medicine
DX: E83.40 Disorders of magnesium metabolism, unspecified (principal); Z94.0 Kidney transplant status; Z48.298 Encounter for aftercare following other organ transplant; T86.90 Unspecified complication of unspecified transplanted organ and tissue; N39.0 Urinary tract infection, site not specified
CPT/HCPCS: 36415; 80053; 80197; 81001; 82570; 83735; 84100; 84156; 85025; 87086

== ENCOUNTER 2023-08-02 07:22 | Outpatient (CLI) | payer MEDICARE, OTHER ==
[2023-08-02 07:55] LABS: ALBUMIN 4.2 g/dL (3.2-5.5); ALBUMIN/GLOBULIN RATIO 1.6 (1.0-2.2); BILIRUBIN,TOTAL 0.7 mg/dL (0.2-1.0); CALCIUM 9.7 mg/dL (8.5-10.3); CREATININE 0.8 mg/dL (0.6-1.3); MAGNESIUM 1.5 mg/dL (1.7-2.3); PHOSPHORUS 2.3 mg/dL (2.5-5.0); POTASSIUM 3.9 mmol/L (3.5-4.5); TOTAL PROTEIN 6.9 g/dL (6.4-8.9)
[2023-08-02 08:01] LABS: BASOPHILS % (AUTO) 0.4 %; EOSINOPHILS # (AUTO) 0.1 10^3/uL (0.0-0.7); HCT - HEMATOCRIT 36.6 % (42.0-52.0); HGB - HEMOGLOBIN 12.3 g/dL (14.0-18.0); LYMPHOCYTES # (AUTO) 1.6 10^3/uL (1.5-3.5); LYMPHOCYTES % (AUTO) 32.4 %; MEAN CORPUSCULAR HEMOGLOBIN 32.5 pg (27.0-31.0); MEAN CORPUSCULAR HGB CONC 33.6 g/dL (32.0-36.0); MEAN CORPUSCULAR VOLUME 96.6 fL (80.0-94.0); MEAN PLATELET VOLUME 10.3 fL (7.4-11.4); MONOCYTES # (AUTO) 0.6 10^3/uL (0.0-1.0); MONOCYTES % (AUTO) 12.2 %; NEUTROPHILS # (AUTO) 2.7 10^3/uL (1.5-6.6); NEUTROPHILS % (AUTO) 53.6 %; PLT - PLATELET COUNT 112 10^3/uL (130-450); RED BLOOD COUNT 3.79 10^6/uL (4.70-6.10); RED CELL DISTRIBUTION WIDTH 12.3 % (12.0-15.0)
[2023-08-02 08:16] LABS: BILIRUBIN,URINE NEGATIVE (NEGATIVE); GLUCOSE, URINE (UA) NEGATIVE (NEGATIVE); KETONES,URINE (UA) NEGATIVE (NEGATIVE); LEUKOCYTE ESTERASE, URINE NEGATIVE (NEGATIVE); NITRITE,URINE NEGATIVE (NEGATIVE); OCCULT BLOOD,URINE NEGATIVE (NEGATIVE); PROTEIN,URINE NEGATIVE (NEGATIVE); UROBILINOGEN,URINE 0.2 (NORMAL) E.U./dL (NORMAL)
[2023-08-02 08:50] LABS: BACTERIA,URINE None Seen /HPF (None Seen); CLARITY,URINE CLEAR (CLEAR); RBC,URINE None Seen /HPF (0-5); SQUAMOUS EPITHELIAL CELL,UR NONE SEEN (<= Few); WBC,URINE 0-3 /HPF (0-3)
[2023-08-02 09:47] LABS: CREATININE,URINE 137.9 mg/dL; PROTEIN/CREATININE RATIO,URINE 0.1 (<=0.2)
== END 2023-08-02 07:23 | disposition home or self-care (01) ==
LOC: LAB 07:22
PROVIDERS: ATTEND Internal Medicine
DX: E83.40 Disorders of magnesium metabolism, unspecified (principal); Z94.0 Kidney transplant status; Z48.298 Encounter for aftercare following other organ transplant; T86.90 Unspecified complication of unspecified transplanted organ and tissue; N39.0 Urinary tract infection, site not specified
CPT/HCPCS: 36415; 80053; 80197; 81001; 82570; 83735; 84100; 84156; 85025; 87086

== ENCOUNTER 2023-08-16 07:27 | Outpatient (CLI) | payer MEDICARE, OTHER ==
[2023-08-16 07:45] LABS: BASOPHILS % (AUTO) 0.3 %; EOSINOPHILS # (AUTO) 0.1 10^3/uL (0.0-0.7); HCT - HEMATOCRIT 37.1 % (42.0-52.0); HGB - HEMOGLOBIN 12.1 g/dL (14.0-18.0); LYMPHOCYTES # (AUTO) 2.2 10^3/uL (1.5-3.5); LYMPHOCYTES % (AUTO) 37.3 %; MEAN CORPUSCULAR HEMOGLOBIN 31.8 pg (27.0-31.0); MEAN CORPUSCULAR HGB CONC 32.6 g/dL (32.0-36.0); MEAN CORPUSCULAR VOLUME 97.4 fL (80.0-94.0); MEAN PLATELET VOLUME 10.6 fL (7.4-11.4); MONOCYTES # (AUTO) 0.6 10^3/uL (0.0-1.0); MONOCYTES % (AUTO) 11.1 %; NEUTROPHILS # (AUTO) 2.9 10^3/uL (1.5-6.6); NEUTROPHILS % (AUTO) 49.8 %; PLT - PLATELET COUNT 110 10^3/uL (130-450); RED BLOOD COUNT 3.81 10^6/uL (4.70-6.10); RED CELL DISTRIBUTION WIDTH 12.6 % (12.0-15.0); WHITE BLOOD COUNT 5.8 x10^3/uL (4.8-10.8)
[2023-08-16 07:52] LABS: BILIRUBIN,URINE NEGATIVE (NEGATIVE); GLUCOSE, URINE (UA) NEGATIVE (NEGATIVE); KETONES,URINE (UA) NEGATIVE (NEGATIVE); LEUKOCYTE ESTERASE, URINE NEGATIVE (NEGATIVE); NITRITE,URINE NEGATIVE (NEGATIVE); OCCULT BLOOD,URINE TRACE-INTA (NEGATIVE); PROTEIN,URINE NEGATIVE (NEGATIVE); UROBILINOGEN,URINE 0.2 (NORMAL) E.U./dL (NORMAL)
[2023-08-16 07:53] LABS: ALBUMIN 4.3 g/dL (3.2-5.5); ALBUMIN/GLOBULIN RATIO 1.9 (1.0-2.2); BILIRUBIN,TOTAL 0.9 mg/dL (0.2-1.0); CALCIUM 9.7 mg/dL (8.5-10.3); CREATININE 0.8 mg/dL (0.6-1.3); MAGNESIUM 1.3 mg/dL (1.7-2.3); PHOSPHORUS 2.5 mg/dL (2.5-5.0); POTASSIUM 3.7 mmol/L (3.5-4.5); TOTAL PROTEIN 6.6 g/dL (6.4-8.9)
[2023-08-16 08:07] LABS: PLATELET MORPHOLOGY NORMAL APPEARANCE (NORMAL)
[2023-08-16 08:10] LABS: BACTERIA,URINE Few /HPF (None Seen); CLARITY,URINE CLEAR (CLEAR); RBC,URINE 0-5 /HPF (0-5); SQUAMOUS EPITHELIAL CELL,UR FEW Squamous (<= Few); WBC,URINE 0-3 /HPF (0-3)
[2023-08-16 08:15] LABS: CREATININE,URINE 136.8 mg/dL; PROTEIN/CREATININE RATIO,URINE 0.1 (<=0.2)
== END 2023-08-16 07:28 | disposition home or self-care (01) ==
LOC: LAB 07:27
PROVIDERS: ATTEND Internal Medicine
DX: E83.40 Disorders of magnesium metabolism, unspecified (principal); Z94.0 Kidney transplant status; Z48.298 Encounter for aftercare following other organ transplant; T86.90 Unspecified complication of unspecified transplanted organ and tissue; N39.0 Urinary tract infection, site not specified
CPT/HCPCS: 36415; 80053; 80197; 81001; 82570; 83735; 84100; 84156; 85025; 87086

== ENCOUNTER 2023-08-30 07:12 | Outpatient (CLI) | payer MEDICARE, OTHER ==
[2023-08-30 07:26] LABS: BILIRUBIN,URINE NEGATIVE (NEGATIVE); GLUCOSE, URINE (UA) NEGATIVE (NEGATIVE); KETONES,URINE (UA) NEGATIVE (NEGATIVE); LEUKOCYTE ESTERASE, URINE NEGATIVE (NEGATIVE); NITRITE,URINE NEGATIVE (NEGATIVE); OCCULT BLOOD,URINE NEGATIVE (NEGATIVE); PROTEIN,URINE NEGATIVE (NEGATIVE); UROBILINOGEN,URINE 0.2 (NORMAL) E.U./dL (NORMAL)
[2023-08-30 07:28] LABS: BASOPHILS % (AUTO) 0.3 %; EOSINOPHILS # (AUTO) 0.1 10^3/uL (0.0-0.7); HCT - HEMATOCRIT 37.8 % (42.0-52.0); MEAN CORPUSCULAR HGB CONC 34.4 g/dL (32.0-36.0); MEAN CORPUSCULAR VOLUME 95.9 fL (80.0-94.0); MEAN PLATELET VOLUME 10.2 fL (7.4-11.4); MONOCYTES # (AUTO) 0.6 10^3/uL (0.0-1.0); MONOCYTES % (AUTO) 8.8 %; NEUTROPHILS % (AUTO) 45.3 %; PLT - PLATELET COUNT 123 10^3/uL (130-450); RED BLOOD COUNT 3.94 10^6/uL (4.70-6.10); RED CELL DISTRIBUTION WIDTH 12.5 % (12.0-15.0); WHITE BLOOD COUNT 6.7 x10^3/uL (4.8-10.8)
[2023-08-30 07:28] LABS: CLARITY,URINE CLEAR (CLEAR)
[2023-08-30 07:36] LABS: BACTERIA,URINE None Seen /HPF (None Seen); RBC,URINE 0-5 /HPF (0-5); SQUAMOUS EPITHELIAL CELL,UR RARE Squamous (<= Few); WBC,URINE 0-3 /HPF (0-3)
[2023-08-30 07:40] LABS: ALBUMIN 4.5 g/dL (3.2-5.5); BILIRUBIN,TOTAL 0.8 mg/dL (0.2-1.0); CALCIUM 10.4 mg/dL (8.5-10.3); MAGNESIUM 1.4 mg/dL (1.7-2.3); PHOSPHORUS 2.8 mg/dL (2.5-5.0); POTASSIUM 3.8 mmol/L (3.5-4.5); TOTAL PROTEIN 6.8 g/dL (6.4-8.9)
[2023-08-30 07:41] LABS: CREATININE,URINE 134.6 mg/dL; PROTEIN/CREATININE RATIO,URINE 0.1 (<=0.2)
== END 2023-08-30 07:13 | disposition home or self-care (01) ==
LOC: LAB 07:12
PROVIDERS: ATTEND Internal Medicine
DX: E83.40 Disorders of magnesium metabolism, unspecified (principal); T86.90 Unspecified complication of unspecified transplanted organ and tissue; Z94.0 Kidney transplant status; Z48.298 Encounter for aftercare following other organ transplant; N39.0 Urinary tract infection, site not specified
CPT/HCPCS: 36415; 80053; 80197; 81001; 82570; 83735; 84100; 84156; 85025; 87086

== ENCOUNTER 2023-09-13 07:28 | Outpatient (CLI) | payer MEDICARE, OTHER ==
[2023-09-13 07:48] LABS: BILIRUBIN,URINE NEGATIVE (NEGATIVE); GLUCOSE, URINE (UA) NEGATIVE (NEGATIVE); KETONES,URINE (UA) NEGATIVE (NEGATIVE); LEUKOCYTE ESTERASE, URINE NEGATIVE (NEGATIVE); NITRITE,URINE NEGATIVE (NEGATIVE); OCCULT BLOOD,URINE TRACE-INTA (NEGATIVE); PROTEIN,URINE NEGATIVE (NEGATIVE); UROBILINOGEN,URINE 0.2 (NORMAL) E.U./dL (NORMAL)
[2023-09-13 07:50] LABS: BASOPHILS % (AUTO) 0.3 %; EOSINOPHILS # (AUTO) 0.1 10^3/uL (0.0-0.7); HCT - HEMATOCRIT 35.6 % (42.0-52.0); LYMPHOCYTES # (AUTO) 2.6 10^3/uL (1.5-3.5); LYMPHOCYTES % (AUTO) 38.5 %; MEAN CORPUSCULAR HEMOGLOBIN 32.6 pg (27.0-31.0); MEAN CORPUSCULAR HGB CONC 33.7 g/dL (32.0-36.0); MEAN CORPUSCULAR VOLUME 96.7 fL (80.0-94.0); MEAN PLATELET VOLUME 10.2 fL (7.4-11.4); MONOCYTES # (AUTO) 0.6 10^3/uL (0.0-1.0); MONOCYTES % (AUTO) 8.9 %; NEUTROPHILS # (AUTO) 3.5 10^3/uL (1.5-6.6); NEUTROPHILS % (AUTO) 50.6 %; PLT - PLATELET COUNT 115 10^3/uL (130-450); RED BLOOD COUNT 3.68 10^6/uL (4.70-6.10); RED CELL DISTRIBUTION WIDTH 12.4 % (12.0-15.0); WHITE BLOOD COUNT 6.9 x10^3/uL (4.8-10.8)
[2023-09-13 08:00] LABS: CLARITY,URINE CLEAR (CLEAR); RBC,URINE 0-5 /HPF (0-5); WBC,URINE 0-3 /HPF (0-3)
[2023-09-13 08:01] LABS: BACTERIA,URINE Rare /HPF (None Seen); SQUAMOUS EPITHELIAL CELL,UR RARE Squamous (<= Few)
[2023-09-13 08:01] LABS: ALBUMIN 4.2 g/dL (3.2-5.5); ALBUMIN/GLOBULIN RATIO 1.7 (1.0-2.2); BILIRUBIN,TOTAL 0.7 mg/dL (0.2-1.0); CALCIUM 9.7 mg/dL (8.5-10.3); CREATININE 0.8 mg/dL (0.6-1.3); MAGNESIUM 1.2 mg/dL (1.7-2.3); PHOSPHORUS 2.5 mg/dL (2.5-5.0); POTASSIUM 3.5 mmol/L (3.5-4.5); TOTAL PROTEIN 6.7 g/dL (6.4-8.9)
[2023-09-13 08:02] LABS: CREATININE,URINE 164.9 mg/dL; PROTEIN/CREATININE RATIO,URINE 0.1 (<=0.2)
== END 2023-09-13 07:29 | disposition home or self-care (01) ==
LOC: LAB 07:28
PROVIDERS: ATTEND Internal Medicine
DX: E83.40 Disorders of magnesium metabolism, unspecified (principal); Z48.298 Encounter for aftercare following other organ transplant; Z94.0 Kidney transplant status; T86.90 Unspecified complication of unspecified transplanted organ and tissue; N39.0 Urinary tract infection, site not specified
CPT/HCPCS: 36415; 80053; 80197; 81001; 82570; 83735; 84100; 84156; 85025; 87086

== ENCOUNTER 2023-10-07 07:11 | Outpatient (CLI) | payer MEDICARE, OTHER ==
[2023-10-07 07:29] LABS: BILIRUBIN,URINE NEGATIVE (NEGATIVE); GLUCOSE, URINE (UA) NEGATIVE (NEGATIVE); KETONES,URINE (UA) NEGATIVE (NEGATIVE); LEUKOCYTE ESTERASE, URINE NEGATIVE (NEGATIVE); NITRITE,URINE NEGATIVE (NEGATIVE); OCCULT BLOOD,URINE NEGATIVE (NEGATIVE); PROTEIN,URINE NEGATIVE (NEGATIVE); UROBILINOGEN,URINE 0.2 (NORMAL) E.U./dL (NORMAL)
[2023-10-07 07:49] LABS: BASOPHILS % (AUTO) 0.3 %; EOSINOPHILS # (AUTO) 0.1 10^3/uL (0.0-0.7); HGB - HEMOGLOBIN 12.9 g/dL (14.0-18.0); LYMPHOCYTES # (AUTO) 2.1 10^3/uL (1.5-3.5); LYMPHOCYTES % (AUTO) 30.5 %; MEAN CORPUSCULAR HEMOGLOBIN 32.7 pg (27.0-31.0); MEAN CORPUSCULAR HGB CONC 33.9 g/dL (32.0-36.0); MEAN CORPUSCULAR VOLUME 96.4 fL (80.0-94.0); MEAN PLATELET VOLUME 11.1 fL (7.4-11.4); MONOCYTES # (AUTO) 0.6 10^3/uL (0.0-1.0); MONOCYTES % (AUTO) 8.6 %; NEUTROPHILS % (AUTO) 58.9 %; PLT - PLATELET COUNT 119 10^3/uL (130-450); RED BLOOD COUNT 3.94 10^6/uL (4.70-6.10); RED CELL DISTRIBUTION WIDTH 12.6 % (12.0-15.0); WHITE BLOOD COUNT 6.7 x10^3/uL (4.8-10.8)
[2023-10-07 07:50] LABS: BACTERIA,URINE Rare /HPF (None Seen); CLARITY,URINE CLEAR (CLEAR); RBC,URINE 0-5 /HPF (0-5); SQUAMOUS EPITHELIAL CELL,UR RARE Squamous (<= Few); WBC,URINE 0-3 /HPF (0-3)
[2023-10-07 07:52] LABS: CREATININE,URINE 126.9 mg/dL; PROTEIN/CREATININE RATIO,URINE 0.1 (<=0.2)
[2023-10-07 07:54] LABS: ALBUMIN 4.4 g/dL (3.2-5.5); ALBUMIN/GLOBULIN RATIO 1.6 (1.0-2.2); BILIRUBIN,TOTAL 0.8 mg/dL (0.2-1.0); CALCIUM 10.2 mg/dL (8.5-10.3); CREATININE 0.8 mg/dL (0.6-1.3); MAGNESIUM 1.4 mg/dL (1.7-2.3); PHOSPHORUS 2.5 mg/dL (2.5-5.0); POTASSIUM 3.6 mmol/L (3.5-4.5); TOTAL PROTEIN 7.1 g/dL (6.4-8.9)
== END 2023-10-07 07:12 | disposition home or self-care (01) ==
LOC: LAB 07:11
PROVIDERS: ATTEND Internal Medicine
DX: N39.0 Urinary tract infection, site not specified (principal); Z94.0 Kidney transplant status; Z48.298 Encounter for aftercare following other organ transplant; E83.40 Disorders of magnesium metabolism, unspecified; T86.90 Unspecified complication of unspecified transplanted organ and tissue
CPT/HCPCS: 36415; 80053; 80197; 81001; 82570; 83735; 84100; 84156; 85025; 87086

== ENCOUNTER 2023-10-21 07:20 | Outpatient (CLI) | payer MEDICARE, OTHER ==
[2023-10-21 07:37] LABS: BASOPHILS % (AUTO) 0.3 %; EOSINOPHILS # (AUTO) 0.1 10^3/uL (0.0-0.7); EOSINOPHILS % (AUTO) 1.1 %; HCT - HEMATOCRIT 38.1 % (42.0-52.0); HGB - HEMOGLOBIN 12.9 g/dL (14.0-18.0); LYMPHOCYTES % (AUTO) 32.4 %; MEAN CORPUSCULAR HEMOGLOBIN 32.7 pg (27.0-31.0); MEAN CORPUSCULAR HGB CONC 33.9 g/dL (32.0-36.0); MEAN CORPUSCULAR VOLUME 96.5 fL (80.0-94.0); MEAN PLATELET VOLUME 10.7 fL (7.4-11.4); MONOCYTES # (AUTO) 0.6 10^3/uL (0.0-1.0); MONOCYTES % (AUTO) 9.8 %; NEUTROPHILS # (AUTO) 3.5 10^3/uL (1.5-6.6); NEUTROPHILS % (AUTO) 55.8 %; PLT - PLATELET COUNT 118 10^3/uL (130-450); RED BLOOD COUNT 3.95 10^6/uL (4.70-6.10); RED CELL DISTRIBUTION WIDTH 12.6 % (12.0-15.0); WHITE BLOOD COUNT 6.3 x10^3/uL (4.8-10.8)
[2023-10-21 07:37] LABS: BILIRUBIN,URINE NEGATIVE (NEGATIVE); GLUCOSE, URINE (UA) NEGATIVE (NEGATIVE); KETONES,URINE (UA) NEGATIVE (NEGATIVE); LEUKOCYTE ESTERASE, URINE NEGATIVE (NEGATIVE); NITRITE,URINE NEGATIVE (NEGATIVE); OCCULT BLOOD,URINE TRACE-INTA (NEGATIVE); PH,URINE 5.5 PH (5.0-7.5); PROTEIN,URINE NEGATIVE (NEGATIVE); UROBILINOGEN,URINE 0.2 (NORMAL) E.U./dL (NORMAL)
[2023-10-21 07:54] LABS: ALBUMIN 4.4 g/dL (3.2-5.5); ALBUMIN/GLOBULIN RATIO 1.7 (1.0-2.2); BILIRUBIN,TOTAL 0.8 mg/dL (0.2-1.0); CALCIUM 10.3 mg/dL (8.5-10.3); CREATININE 0.9 mg/dL (0.6-1.3); MAGNESIUM 1.3 mg/dL (1.7-2.3); PHOSPHORUS 2.3 mg/dL (2.5-5.0); POTASSIUM 3.7 mmol/L (3.5-4.5)
[2023-10-21 07:58] LABS: BACTERIA,URINE Few /HPF (None Seen); CLARITY,URINE CLEAR (CLEAR); RBC,URINE 0-5 /HPF (0-5); SQUAMOUS EPITHELIAL CELL,UR NONE SEEN (<= Few); WBC,URINE 0-3 /HPF (0-3)
[2023-10-21 08:08] LABS: CREATININE,URINE 154.3 mg/dL; PROTEIN/CREATININE RATIO,URINE 0.1 (<=0.2)
== END 2023-10-21 07:21 | disposition home or self-care (01) ==
LOC: LAB 07:20
PROVIDERS: ATTEND Internal Medicine
DX: Z94.0 Kidney transplant status (principal); Z48.298 Encounter for aftercare following other organ transplant; E83.40 Disorders of magnesium metabolism, unspecified; T86.90 Unspecified complication of unspecified transplanted organ and tissue; N39.0 Urinary tract infection, site not specified
CPT/HCPCS: 36415; 80053; 80197; 81001; 82570; 83735; 84100; 84156; 85025; 87086

== ENCOUNTER 2023-10-29 07:23 | Outpatient (CLI) | payer MEDICARE, OTHER ==
[2023-10-29 07:49] LABS: BILIRUBIN,URINE NEGATIVE (NEGATIVE); GLUCOSE, URINE (UA) NEGATIVE (NEGATIVE); KETONES,URINE (UA) NEGATIVE (NEGATIVE); LEUKOCYTE ESTERASE, URINE NEGATIVE (NEGATIVE); NITRITE,URINE NEGATIVE (NEGATIVE); OCCULT BLOOD,URINE NEGATIVE (NEGATIVE); PROTEIN,URINE NEGATIVE (NEGATIVE); UROBILINOGEN,URINE 0.2 (NORMAL) E.U./dL (NORMAL)
[2023-10-29 07:54] LABS: BASOPHILS % (AUTO) 0.2 %; EOSINOPHILS # (AUTO) 0.1 10^3/uL (0.0-0.7); EOSINOPHILS % (AUTO) 1.2 %; HCT - HEMATOCRIT 37.2 % (42.0-52.0); HGB - HEMOGLOBIN 12.2 g/dL (14.0-18.0); LYMPHOCYTES % (AUTO) 30.5 %; MEAN CORPUSCULAR HEMOGLOBIN 31.4 pg (27.0-31.0); MEAN CORPUSCULAR HGB CONC 32.8 g/dL (32.0-36.0); MEAN CORPUSCULAR VOLUME 95.6 fL (80.0-94.0); MEAN PLATELET VOLUME 10.8 fL (7.4-11.4); MONOCYTES # (AUTO) 0.6 10^3/uL (0.0-1.0); MONOCYTES % (AUTO) 9.5 %; NEUTROPHILS # (AUTO) 3.8 10^3/uL (1.5-6.6); PLT - PLATELET COUNT 123 10^3/uL (130-450); RED BLOOD COUNT 3.89 10^6/uL (4.70-6.10); RED CELL DISTRIBUTION WIDTH 12.6 % (12.0-15.0); WHITE BLOOD COUNT 6.5 x10^3/uL (4.8-10.8)
[2023-10-29 08:01] LABS: BACTERIA,URINE None Seen /HPF (None Seen); CLARITY,URINE CLEAR (CLEAR); RBC,URINE 0-5 /HPF (0-5); SQUAMOUS EPITHELIAL CELL,UR RARE Squamous (<= Few); WBC,URINE 0-3 /HPF (0-3)
[2023-10-29 08:14] LABS: ALBUMIN 4.4 g/dL (3.2-5.5); BILIRUBIN,TOTAL 0.7 mg/dL (0.2-1.0); CALCIUM 9.8 mg/dL (8.5-10.3); CREATININE 0.8 mg/dL (0.6-1.3); CREATININE,URINE 113.6 mg/dL; MAGNESIUM 1.6 mg/dL (1.7-2.3); PHOSPHORUS 2.2 mg/dL (2.5-5.0); POTASSIUM 3.7 mmol/L (3.5-4.5); PROTEIN/CREATININE RATIO,URINE 0.1 (<=0.2); TOTAL PROTEIN 6.6 g/dL (6.4-8.9)
== END 2023-10-29 07:24 | disposition home or self-care (01) ==
LOC: LAB 07:23
PROVIDERS: ATTEND Student in an Organized Health Care Education/Training Program
DX: D70.9 Neutropenia, unspecified (principal); D63.1 Anemia in chronic kidney disease; N05.9 Unspecified nephritic syndrome with unspecified morphologic changes; T86.10 Unspecified complication of kidney transplant; E83.40 Disorders of magnesium metabolism, unspecified; E83.30 Disorder of phosphorus metabolism, unspecified; N25.81 Secondary hyperparathyroidism of renal origin; B34.9 Viral infection, unspecified; N30.00 Acute cystitis without hematuria; R80.9 Proteinuria, unspecified; Z48.298 Encounter for aftercare following other organ transplant
CPT/HCPCS: 36415; 80053; 80197; 81001; 82570; 83735; 83970; 84100; 84156; 85014; 85018; 85025; 87086; 87799

== ENCOUNTER 2023-11-12 07:33 | Outpatient (CLI) | payer MEDICARE, OTHER ==
[2023-11-12 07:50] LABS: BILIRUBIN,URINE NEGATIVE (NEGATIVE); GLUCOSE, URINE (UA) NEGATIVE (NEGATIVE); KETONES,URINE (UA) NEGATIVE (NEGATIVE); LEUKOCYTE ESTERASE, URINE NEGATIVE (NEGATIVE); NITRITE,URINE NEGATIVE (NEGATIVE); OCCULT BLOOD,URINE NEGATIVE (NEGATIVE); PROTEIN,URINE NEGATIVE (NEGATIVE); UROBILINOGEN,URINE 0.2 (NORMAL) E.U./dL (NORMAL)
[2023-11-12 07:54] LABS: BASOPHILS % (AUTO) 0.2 %; EOSINOPHILS # (AUTO) 0.1 10^3/uL (0.0-0.7); EOSINOPHILS % (AUTO) 0.8 %; HCT - HEMATOCRIT 38.3 % (42.0-52.0); LYMPHOCYTES # (AUTO) 1.9 10^3/uL (1.5-3.5); LYMPHOCYTES % (AUTO) 30.2 %; MEAN CORPUSCULAR HEMOGLOBIN 32.2 pg (27.0-31.0); MEAN CORPUSCULAR HGB CONC 33.9 g/dL (32.0-36.0); MEAN CORPUSCULAR VOLUME 94.8 fL (80.0-94.0); MEAN PLATELET VOLUME 10.4 fL (7.4-11.4); MONOCYTES # (AUTO) 0.7 10^3/uL (0.0-1.0); MONOCYTES % (AUTO) 10.4 %; NEUTROPHILS # (AUTO) 3.7 10^3/uL (1.5-6.6); NEUTROPHILS % (AUTO) 57.6 %; PLT - PLATELET COUNT 125 10^3/uL (130-450); RED BLOOD COUNT 4.04 10^6/uL (4.70-6.10); RED CELL DISTRIBUTION WIDTH 12.5 % (12.0-15.0); WHITE BLOOD COUNT 6.3 x10^3/uL (4.8-10.8)
[2023-11-12 08:10] LABS: ALBUMIN 4.5 g/dL (3.2-5.5); ALBUMIN/GLOBULIN RATIO 1.9 (1.0-2.2); BILIRUBIN,TOTAL 0.8 mg/dL (0.2-1.0); CALCIUM 10.1 mg/dL (8.5-10.3); CREATININE 0.8 mg/dL (0.6-1.3); MAGNESIUM 1.4 mg/dL (1.7-2.3); PHOSPHORUS 2.6 mg/dL (2.5-5.0); POTASSIUM 3.5 mmol/L (3.5-4.5); TOTAL PROTEIN 6.9 g/dL (6.4-8.9)
[2023-11-12 08:11] LABS: CREATININE,URINE 94.2 mg/dL; PROTEIN/CREATININE RATIO,URINE 0.1 (<=0.2)
[2023-11-12 08:12] LABS: BACTERIA,URINE None Seen /HPF (None Seen); CLARITY,URINE CLEAR (CLEAR); RBC,URINE None Seen /HPF (0-5); SQUAMOUS EPITHELIAL CELL,UR NONE SEEN (<= Few); WBC,URINE 0-3 /HPF (0-3)
== END 2023-11-12 07:34 | disposition home or self-care (01) ==
LOC: LAB 07:33
PROVIDERS: ATTEND Internal Medicine
DX: E83.40 Disorders of magnesium metabolism, unspecified (principal); Z94.0 Kidney transplant status; Z48.298 Encounter for aftercare following other organ transplant; T86.90 Unspecified complication of unspecified transplanted organ and tissue; N39.0 Urinary tract infection, site not specified
CPT/HCPCS: 36415; 80053; 80197; 81001; 82570; 83735; 84100; 84156; 85025; 87086

== ENCOUNTER 2024-01-17 06:57 | Outpatient (CLI) | payer MEDICARE, OTHER ==
[2024-01-17 07:46] LABS: BASOPHILS % (AUTO) 0.3 %; EOSINOPHILS # (AUTO) 0.1 10^3/uL (0.0-0.7); HCT - HEMATOCRIT 38.2 % (42.0-52.0); HGB - HEMOGLOBIN 12.8 g/dL (14.0-18.0); LYMPHOCYTES # (AUTO) 2.1 10^3/uL (1.5-3.5); LYMPHOCYTES % (AUTO) 30.5 %; MEAN CORPUSCULAR HEMOGLOBIN 31.6 pg (27.0-31.0); MEAN CORPUSCULAR HGB CONC 33.5 g/dL (32.0-36.0); MEAN CORPUSCULAR VOLUME 94.3 fL (80.0-94.0); MEAN PLATELET VOLUME 10.9 fL (7.4-11.4); MONOCYTES # (AUTO) 0.6 10^3/uL (0.0-1.0); MONOCYTES % (AUTO) 8.6 %; NEUTROPHILS # (AUTO) 4.1 10^3/uL (1.5-6.6); NEUTROPHILS % (AUTO) 59.3 %; PLT - PLATELET COUNT 126 10^3/uL (130-450); RED BLOOD COUNT 4.05 10^6/uL (4.70-6.10); RED CELL DISTRIBUTION WIDTH 12.4 % (12.0-15.0); WHITE BLOOD COUNT 6.9 x10^3/uL (4.8-10.8)
[2024-01-17 07:54] LABS: ALBUMIN 4.5 g/dL (3.2-5.5); ALBUMIN/GLOBULIN RATIO 1.7 (1.0-2.2); BILIRUBIN,TOTAL 0.9 mg/dL (0.2-1.0); CALCIUM 10.2 mg/dL (8.5-10.3); CREATININE 0.9 mg/dL (0.6-1.3); MAGNESIUM 1.4 mg/dL (1.7-2.3); PHOSPHORUS 2.8 mg/dL (2.5-5.0); POTASSIUM 3.5 mmol/L (3.5-4.5); TOTAL PROTEIN 7.1 g/dL (6.4-8.9)
[2024-01-17 08:02] LABS: BILIRUBIN,URINE NEGATIVE (NEGATIVE); GLUCOSE, URINE (UA) NEGATIVE (NEGATIVE); KETONES,URINE (UA) TRACE mg/dL (NEGATIVE); LEUKOCYTE ESTERASE, URINE NEGATIVE (NEGATIVE); NITRITE,URINE NEGATIVE (NEGATIVE); OCCULT BLOOD,URINE NEGATIVE (NEGATIVE); PROTEIN,URINE NEGATIVE (NEGATIVE); UROBILINOGEN,URINE 0.2 (NORMAL) E.U./dL (NORMAL)
[2024-01-17 08:12] LABS: CREATININE,URINE 85.8 mg/dL; PROTEIN/CREATININE RATIO,URINE 0.1 (<=0.2)
[2024-01-17 08:15] LABS: BACTERIA,URINE Few /HPF (None Seen); CLARITY,URINE CLEAR (CLEAR); RBC,URINE 0-5 /HPF (0-5); SQUAMOUS EPITHELIAL CELL,UR RARE Squamous (<= Few); WBC,URINE 0-3 /HPF (0-3)
== END 2024-01-17 06:58 | disposition home or self-care (01) ==
LOC: LAB 06:57
PROVIDERS: ATTEND Internal Medicine
DX: E83.40 Disorders of magnesium metabolism, unspecified (principal); N39.0 Urinary tract infection, site not specified; Z48.298 Encounter for aftercare following other organ transplant; T86.90 Unspecified complication of unspecified transplanted organ and tissue; Z94.0 Kidney transplant status
CPT/HCPCS: 36415; 80053; 80197; 81001; 82570; 83735; 84100; 84156; 85025; 87086

== ENCOUNTER 2024-02-16 07:06 | Outpatient (CLI) | payer MEDICARE, OTHER ==
[2024-02-16 07:17] LABS: BILIRUBIN,URINE NEGATIVE (NEGATIVE); GLUCOSE, URINE (UA) NEGATIVE (NEGATIVE); KETONES,URINE (UA) NEGATIVE (NEGATIVE); LEUKOCYTE ESTERASE, URINE NEGATIVE (NEGATIVE); NITRITE,URINE NEGATIVE (NEGATIVE); OCCULT BLOOD,URINE NEGATIVE (NEGATIVE); PROTEIN,URINE NEGATIVE (NEGATIVE); UROBILINOGEN,URINE 0.2 (NORMAL) E.U./dL (NORMAL)
[2024-02-16 07:28] LABS: BACTERIA,URINE Few /HPF (None Seen); RBC,URINE 0-5 /HPF (0-5); SQUAMOUS EPITHELIAL CELL,UR FEW Squamous (<= Few); WBC,URINE 0-3 /HPF (0-3)
[2024-02-16 07:29] LABS: CLARITY,URINE CLEAR (CLEAR)
[2024-02-16 07:34] LABS: BASOPHILS % (AUTO) 0.1 %; EOSINOPHILS # (AUTO) 0.1 10^3/uL (0.0-0.7); EOSINOPHILS % (AUTO) 1.2 %; HCT - HEMATOCRIT 37.8 % (42.0-52.0); HGB - HEMOGLOBIN 12.4 g/dL (14.0-18.0); LYMPHOCYTES # (AUTO) 1.5 10^3/uL (1.5-3.5); LYMPHOCYTES % (AUTO) 22.4 %; MEAN CORPUSCULAR HEMOGLOBIN 31.5 pg (27.0-31.0); MEAN CORPUSCULAR HGB CONC 32.8 g/dL (32.0-36.0); MEAN CORPUSCULAR VOLUME 95.9 fL (80.0-94.0); NEUTROPHILS # (AUTO) 4.2 10^3/uL (1.5-6.6); NEUTROPHILS % (AUTO) 61.9 %; PLT - PLATELET COUNT 117 10^3/uL (130-450); RED BLOOD COUNT 3.94 10^6/uL (4.70-6.10); RED CELL DISTRIBUTION WIDTH 12.5 % (12.0-15.0); WHITE BLOOD COUNT 6.8 x10^3/uL (4.8-10.8)
[2024-02-16 09:12] LABS: CREATININE,URINE 134.3 mg/dL; PROTEIN/CREATININE RATIO,URINE 0.1 (<=0.2)
[2024-02-16 09:15] LABS: ALBUMIN 4.1 g/dL (3.2-5.5); ALBUMIN/GLOBULIN RATIO 1.6 (1.0-2.2); BILIRUBIN,TOTAL 0.6 mg/dL (0.2-1.0); CALCIUM 9.4 mg/dL (8.5-10.3); CREATININE 0.8 mg/dL (0.6-1.3); MAGNESIUM 1.5 mg/dL (1.7-2.3); PHOSPHORUS 2.2 mg/dL (2.5-5.0); POTASSIUM 3.6 mmol/L (3.5-4.5); TOTAL PROTEIN 6.7 g/dL (6.4-8.9)
== END 2024-02-16 07:07 | disposition home or self-care (01) ==
LOC: LAB 07:06
PROVIDERS: ATTEND Internal Medicine
DX: Z48.298 Encounter for aftercare following other organ transplant (principal); Z94.0 Kidney transplant status; E83.40 Disorders of magnesium metabolism, unspecified; T86.90 Unspecified complication of unspecified transplanted organ and tissue; N39.0 Urinary tract infection, site not specified
CPT/HCPCS: 36415; 80053; 80197; 81001; 82570; 83735; 84100; 84156; 85025; 87086